=== PATIENT | male | born 1965 | race Caucasian/White ===

== ENCOUNTER 2016-06-21 13:09 | Inpatient (IN) | payer OTHER ==
--- NOTE | 2016-06-21 14:00 | ED ---
General Adult HPI - General Chief complaint: Recheck/Abnormal Lab/Rx Stated complaint: abdominal/feet/hand swelling Time Seen by Provider: 06/21/16 13:41 Source: patient, RN notes reviewed Mode of arrival: ambulatory - History of Present Illness Initial comments: Patient is a 50-year-old male with significant past mental history for CKD, CHF , CAD, diabetes, hypertension, hyperlipidemia, who presents emergency room today with a chief complaint of increased swelling to his lower extremities bilaterally and abdominal swelling. He does admit that he was at a route sales trainee 's office for a stress test this afternoon and was advised come to the emergency room. States he had an inconclusive stress test due to fluid patient does admit that he's had some shortness of breath and increasing symptoms over the last month. he does admit that he does have a paratransit operator that he sees regularly but was unable to get into. Patient states that there is talk about starting dialysis. He denies any other complaints or symptoms. Patient denies any recent fever, chills, chest pain, back pain, nausea or vomiting, numbness or tingling, dysuria or hematuria, constipation or diarrhea, headaches or visual changes, or any other complaints. - Related Data Home Medications Medication Instructions Recorded Confirmed Aspirin 81 mg PO DAILY 01/24/14 06/21/16 Citalopram Hydrobromide [CeleXA] 20 mg PO DAILY 01/24/14 06/21/16 Clopidogrel [Plavix] 75 mg PO DAILY 02/19/15 06/21/16 Carvedilol [Coreg] 25 mg PO Q12H 02/20/15 06/21/16 Omeprazole [PriLOSEC] 20 mg PO AC-BRKFST 02/20/15 06/21/16 Cholecalciferol [Vitamin D3] 2,000 unit PO DAILY 06/21/16 06/21/16 Furosemide [Lasix] 40 mg PO BID 06/21/16 06/21/16 Isosorbide Mononitrate ER [Imdur] 30 mg PO BID 06/21/16 06/21/16 Magnesium Oxide [Mag-Ox] 400 mg PO DAILY 06/21/16 06/21/16 amLODIPine [Norvasc] 10 mg PO DAILY 06/21/16 06/21/16 hydrALAZINE HCL [Apresoline] 50 mg PO BID 06/21/16 06/21/16 Allergies Allergy/AdvReac Type Severity Reaction Status Date / Time No Known Allergies Allergy Verified 06/21/16 13:49 Review of Systems ROS Statement: Those systems with pertinent positive or pertinent negative responses have been documented in the HPI. ROS Other: All systems not noted in ROS Statement are negative. Past Medical History Past Medical History: Heart Failure, Diabetes Mellitus, Hyperlipidemia, Hypertension, Renal Disease Additional Past Medical History / Comment(s): Hx chronic kidney disease,stage 4 , Hx. CHF, MS, Neuropathy History of Any Multi-Drug Resistant Organisms: None Reported Past Surgical History: Heart Catheterization With Stent, Pacemaker Additional Past Surgical History / Comment(s): Hx. vasectomy, pacemaker defibulator 06/08/2014 Past Anesthesia/Blood Transfusion Reactions: No Reported Reaction Date of Last Stent Placement:: jun 2014 Type of Cardiac Device: Permanent Pacemaker, AICD Device Placement Date:: 06/08/2014 Past Psychological History: Depression Smoking Status: Current every day smoker Past Alcohol Use History: None Reported Past Drug Use History: Marijuana Additional Drug Use History / Comment(s): pt states he smokes "half of a pack per day" and uses "medical marijuana" - Past Family History Mother Additional Family Medical History / Comment(s): Mother-stent son-1 kidney General Exam - General Exam Comments Initial Comments: General: The patient is awake and alert, in no distress, and does not appear acutely ill. Eye: Pupils are equal, round and reactive to light, extra-ocular movements are intact. No nystagmus. There is normal conjunctiva bilaterally. No signs of icterus. Ears, nose, mouth and throat: There are moist mucous membranes and no oral lesions. Neck: The neck is supple, there is no tenderness or JVD. Cardiovascular: There is a regular rate and rhythm. No murmur, rub or gallop is appreciated. Respiratory: Lungs are clear to auscultation, respirations are non-labored, breath sounds are equal. No wheezes, stridor, rales, or rhonchi. Gastrointestinal: Mild distention. No tenderness on palpation. Abdominal sounds normal. No rebound tenderness. No guarding. No CVA tenderness. Musculoskeletal: Normal ROM, no tenderness. Strength 5/5. Sensation intact. Pulses equal bilaterally 2+. 2+ pitting edema to the lower shows. Neurological: A&O x 3. CN II-XII intact, There are no obvious motor or sensory deficits. Coordination appears grossly intact. Speech is normal. Skin: Skin is warm and dry and no rashes or lesions are noted. Psychiatric: Cooperative, appropriate mood & affect, normal judgment. Course Vital Signs 06/21/16 06/21/16 06/21/16 13:18 14:00 14:54 Temperature 97.5 F L Pulse Rate 69 66 Pulse Rate [ 73 Bilateral Plater Helper ] Respiratory 18 20 20 Rate Blood Pressure 190/96 189/112 O2 Sat by Pulse 98 99 Oximetry 06/21/16 06/21/16 15:34 16:14 Temperature Pulse Rate 66 70 Pulse Rate [ Bilateral Plater Helper ] Respiratory 20 18 Rate Blood Pressure 185/107 189/108 O2 Sat by Pulse 98 98 Oximetry EKG Findings - EKG Comments: EKG Findings:: Patient's EKG performed at 1405: Shows a paced rhythm at 66 bpm. MA interval 136. QRS 138. QT/QTc 514/538. No acute ST changes. Medical Decision Making - Medical Decision Making Case discussed in detail with attending physician Dr. [email or web address]. Patient's labs were reviewed and shows elevation of BUN/creatinine. GFR 22. Patient will be admitted for anasarca and consult to paratransit operator Dr. Ivna. - Lab Data Result diagrams: 06/21/16 13:50 06/21/16 13:50 Lab Results 06/21/16 06/21/16 06/21/16 Range/Units 13:50 13:50 13:50 WBC 6.6 (3.8-10.6) k/uL RBC 4.23 L (4.30-5.90) m/uL Hgb 11.5 L (13.0-17.5) gm/dL Hct 37.4 L (39.0-53.0) % MCV 88.5 (80.0-100.0) fL MCH 27.1 (25.0-35.0) pg MCHC 30.7 L (31.0-37.0) g/dL RDW 15.2 (11.5-15.5) % Plt Count 298 (150-450) k/uL Neutrophils % 73 % Lymphocytes % 17 % Monocytes % 6 % Eosinophils % 3 % Basophils % 1 % Neutrophils # 4.9 (1.3-7.7) k/uL Lymphocytes # 1.1 (1.0-4.8) k/uL Monocytes # 0.4 (0-1.0) k/uL Eosinophils # 0.2 (0-0.7) k/uL Basophils # 0.0 (0-0.2) k/uL Hypochromasia Slight PT (9.0-12.0) sec INR (<1.1) APTT (22.0-30.0) sec Sodium 145 (137-145) mmol/L Potassium 5.1 (3.5-5.1) mmol/L Chloride 109 H (98-107) mmol/L Carbon Dioxide 22 (22-30) mmol/L Anion Gap 14 mmol/L BUN 45 H (9-20) mg/dL Creatinine 3.00 H (0.66-1.25) mg/dL Est GFR (MDRD) Af Amer 27 (>60 ml/min/1.73 sqM) Est GFR (MDRD) Non-Af 22 (>60 ml/min/1.73 sqM) Glucose 121 H (74-99) mg/dL Calcium 9.1 (8.4-10.2) mg/dL Magnesium 1.7 (1.6-2.3) mg/dL Total Bilirubin 2.4 H (0.2-1.3) mg/dL AST 16 L (17-59) U/L ALT 31 (21-72) U/L Alkaline Phosphatase 111 (38-126) U/L Total Creatine Kinase 229 H (55-170) U/L CK-MB (CK-2) 2.0 (0.0-2.4) ng/mL CK-MB (CK-2) Rel Index 0.9 Troponin I 0.019 (0.000-0.034) ng/mL NT-Pro-B Natriuret Pep pg/mL Total Protein 7.1 (6.3-8.2) g/dL Albumin 4.0 (3.5-5.0) g/dL 06/21/16 06/21/16 Range/Units 13:50 13:50 WBC (3.8-10.6) k/uL RBC (4.30-5.90) m/uL Hgb (13.0-17.5) gm/dL Hct (39.0-53.0) % MCV (80.0-100.0) fL MCH (25.0-35.0) pg MCHC (31.0-37.0) g/dL RDW (11.5-15.5) % Plt Count (150-450) k/uL Neutrophils % % Lymphocytes % % Monocytes % % Eosinophils % % Basophils % % Neutrophils # (1.3-7.7) k/uL Lymphocytes # (1.0-4.8) k/uL Monocytes # (0-1.0) k/uL Eosinophils # (0-0.7) k/uL Basophils # (0-0.2) k/uL Hypochromasia PT 12.6 H (9.0-12.0) sec INR 1.3 (<1.1) APTT 25.0 (22.0-30.0) sec Sodium (137-145) mmol/L Potassium (3.5-5.1) mmol/L Chloride (98-107) mmol/L Carbon Dioxide (22-30) mmol/L Anion Gap mmol/L BUN (9-20) mg/dL Creatinine (0.66-1.25) mg/dL Est GFR (MDRD) Af Amer (>60 ml/min/1.73 sqM) Est GFR (MDRD) Non-Af (>60 ml/min/1.73 sqM) Glucose (74-99) mg/dL Calcium (8.4-10.2) mg/dL Magnesium (1.6-2.3) mg/dL Total Bilirubin (0.2-1.3) mg/dL AST (17-59) U/L ALT (21-72) U/L Alkaline Phosphatase (38-126) U/L Total Creatine Kinase (55-170) U/L CK-MB (CK-2) (0.0-2.4) ng/mL CK-MB (CK-2) Rel Index Troponin I (0.000-0.034) ng/mL NT-Pro-B Natriuret Pep 07617 pg/mL Total Protein (6.3-8.2) g/dL Albumin (3.5-5.0) g/dL Disposition Clinical Impression: Anasarca, CKD (chronic kidney disease) Disposition: ADMITTED IP TO THIS [facility] Condition: Stable Time of Disposition: 17:00
[2016-06-21 14:29] LABS: Basophils % (A) 1 %; CH 27.5; CHCM 31.2; Eosinophils # (A) 0.2 k/uL (0-0.7); Eosinophils % (A) 3 %; HCT 37.4 % (39.0-53.0); HGB 11.5 gm/dL (13.0-17.5); Hypochromasia Slight; Luc # (Auto) 0.06; Luc % (Auto) 1; Lymphocytes # (A) 1.1 k/uL (1.0-4.8); Lymphocytes % (A) 17 %; MCH 27.1 pg (25.0-35.0); MCHC 30.7 g/dL (31.0-37.0); MCV 88.5 fL (80.0-100.0); Mean Platelet Volume 7.4; Monocytes # (A) 0.4 k/uL (0-1.0); Monocytes % (A) 6 %; Neutrophils # (A) 4.9 k/uL (1.3-7.7); Neutrophils % (A) 73 %; RBC 4.23 m/uL (4.30-5.90); RDW 15.2 % (11.5-15.5); WBC 6.6 k/uL (3.8-10.6); WBC (Perox) 6.65
[2016-06-21 14:37] LABS: INR 1.3 (<1.1); Prothrombin Time 12.6 sec (9.0-12.0)
[2016-06-21 14:40] LABS: Calcium 9.1 mg/dL (8.4-10.2); Magnesium 1.7 mg/dL (1.6-2.3); Potassium 5.1 mmol/L (3.5-5.1); Total Bilirubin 2.4 mg/dL (0.2-1.3); Total Protein 7.1 g/dL (6.3-8.2)
--- NOTE | 2016-06-21 14:44 | XR ---
EXAMINATION TYPE: XR chest 2V DATE OF EXAM: 06/21/2016 2:38 PM COMPARISON: Chest x-ray February 21, 2015. HISTORY: Chest pain and shortness of breath TECHNIQUE: Frontal and lateral views of the chest are obtained. FINDINGS: There is no focal air space opacity, pleural effusion, or pneumothorax seen. The cardiac silhouette size is stable and enlarged with multiple lead pacemaker/ICD redemonstrated. The osseous structures are intact. IMPRESSION: Cardiomegaly without acute pulmonary process. No significant change from prior.
[2016-06-21 15:09] LABS: Troponin I 0.019 ng/mL (0.000-0.034)
[2016-06-21] MEDS ORDERED: HYDROcodone/APAP 5-325MG 1 EACH TAB PO PRN (17:00)
[2016-06-21] MEDS ORDERED: NALOXONE 0.4 MG/ML 1 ML VIAL IV PRN ×2 (17:00→17:03)
[2016-06-21] MEDS ORDERED: HYDROmorphone 2 MG TAB PO PRN ×2 (17:00→17:11)
[2016-06-21] MEDS ORDERED: ONDANSETRON 4 MG/2 ML VIAL IVP PRN (17:00)
[2016-06-21] MEDS ORDERED: SODIUM CHLORIDE 0.9% 1,000 ML IV ONE (17:00)
[2016-06-21] MEDS ORDERED: ACETAMINOPHEN TAB 325 MG TAB PO PRN (17:00)
[2016-06-21] MEDS ORDERED: LORazepam 2 MG/ML SYRINGE IV PRN (17:00)
[2016-06-21] MEDS ORDERED: FUROSEMIDE 10 MG/ML 4 ML VIAL IV STA (17:03)
[2016-06-21] MEDS: hydrALAZINE HCL 50 MG TAB PO SCH ×2 (18:20→23:25)
[2016-06-21] MEDS: amLODIPine 10 MG TAB PO SCH (18:20)
[2016-06-21] MEDS: FUROSEMIDE 10 MG/ML 4 ML VIAL IV SCH (22:10)
[2016-06-21] MEDS: ISOSORBIDE MONONITRATE ER 30 MG TAB.ER.24H PO SCH (22:11)
[2016-06-22 07:50] LABS: Basophils # (A) 0.1 k/uL (0-0.2); Basophils % (A) 1 %; CH 27.6; CHCM 31.5; Eosinophils # (A) 0.2 k/uL (0-0.7); Eosinophils % (A) 4 %; HCT 33.1 % (39.0-53.0); HDW 2.71; HGB 10.2 gm/dL (13.0-17.5); Hypochromasia Slight; Luc # (Auto) 0.08; Luc % (Auto) 1; Lymphocytes # (A) 0.9 k/uL (1.0-4.8); Lymphocytes % (A) 18 %; MCHC 30.7 g/dL (31.0-37.0); Mean Platelet Volume 7.6; Monocytes # (A) 0.4 k/uL (0-1.0); Monocytes % (A) 8 %; Neutrophils # (A) 3.6 k/uL (1.3-7.7); Neutrophils % (A) 68 %; RBC 3.76 m/uL (4.30-5.90); RDW 15.3 % (11.5-15.5); WBC 5.3 k/uL (3.8-10.6); WBC (Perox) 5.37
[2016-06-22 08:01] LABS: Calcium 8.8 mg/dL (8.4-10.2); Potassium 4.5 mmol/L (3.5-5.1); Total Bilirubin 2.5 mg/dL (0.2-1.3); Total Protein 5.8 g/dL (6.3-8.2)
[2016-06-22] MEDS: CARVEDILOL 12.5 MG TAB PO SCH ×2 (08:28→16:21)
[2016-06-22] MEDS: CLOPIDOGREL 75 MG TAB PO SCH (08:29)
[2016-06-22] MEDS: hydrALAZINE HCL 50 MG TAB PO SCH ×2 (08:29→23:05)
[2016-06-22] MEDS: CITALOPRAM HYDROBROMIDE 20 MG TAB PO SCH (08:29)
[2016-06-22] MEDS: FUROSEMIDE 10 MG/ML 4 ML VIAL IV SCH ×3 (08:29→23:05)
[2016-06-22] MEDS: MAGNESIUM OXIDE 400 MG TAB PO SCH (08:29)
[2016-06-22] MEDS: ISOSORBIDE MONONITRATE ER 30 MG TAB.ER.24H PO SCH ×2 (08:29→22:22)
[2016-06-22] MEDS: amLODIPine 10 MG TAB PO SCH (09:22)
--- NOTE | 2016-06-22 11:24 | P.NPCON ---
History of Present Illness - Reason for Consult chronic renal failure - History of Present Illness Reason for consultation: Chronic kidney disease stage IV History of present illness: Patient is a 50-year-old male seen in renal consultation for chronic kidney disease. Patient has chronic kidney disease stage IV secondary to diabetic kidney disease. His creatinine in 2014 was in the range of 3.5-4. It is actually little better this admission and is 2.9 this morning. He does follow with us as an outpatient. Patient does have history of cardiomyopathy with depressed ejection fraction for which she has a defibrillator in place. Patient has noticed worsening lower extremity swelling as well as a abdominal swelling that has been getting worse over the last 2 weeks. States he was compliant with his medications including diuretics. Admits to good urine output. He is currently on IV Lasix and is feeling better. Swelling has improved. He does try to avoid salt. However he does admit to drinking excess fluid at times. Denies use of NSAIDs. Vital signs are stable. General: The patient appeared well nourished and normally developed. HEENT: Head exam is unremarkable. Neck is without jugular venous distension. LUNGS: Lungs are clear to auscultation and percussion. Breath sounds decreased. HEART: Rate and Rhythm are regular. First and second heart sounds normal. No murmurs, rubs or gallops. ABDOMEN: Abdominal exam reveals normal bowel sounds. Non-tender and non- distended. No evidence of peritonitis. EXTREMITITES: 1+ pitting edema. Past Medical History Past Medical History: Heart Failure, Diabetes Mellitus, Hyperlipidemia, Hypertension, Renal Disease Additional Past Medical History / Comment(s): Hx chronic kidney disease,stage 4 , Hx. CHF, MS, Neuropathy History of Any Multi-Drug Resistant Organisms: None Reported Past Surgical History: Heart Catheterization With Stent, Pacemaker Additional Past Surgical History / Comment(s): Hx. vasectomy, pacemaker defibulator 06/08/2014 Past Anesthesia/Blood Transfusion Reactions: No Reported Reaction Date of Last Stent Placement:: jun 2014 Type of Cardiac Device: Permanent Pacemaker, AICD Device Placement Date:: 06/08/2014 Past Psychological History: Depression Smoking Status: Current every day smoker Past Alcohol Use History: None Reported Past Drug Use History: Marijuana Additional Drug Use History / Comment(s): pt states he smokes "half of a pack per day" and uses "medical marijuana" - Past Family History Mother Additional Family Medical History / Comment(s): Mother-stent son-1 kidney Medications and Allergies Home Medications Medication Instructions Recorded Confirmed Type Aspirin 81 mg PO DAILY 01/24/14 06/21/16 History Clopidogrel [Plavix] 75 mg PO DAILY 02/19/15 06/21/16 History Carvedilol [Coreg] 25 mg PO Q12H 02/20/15 06/21/16 History Omeprazole [PriLOSEC] 20 mg PO AC-BRKFST 02/20/15 06/21/16 History Cholecalciferol [Vitamin D3] 2,000 unit PO DAILY 06/21/16 06/21/16 History Furosemide [Lasix] 40 mg PO BID 06/21/16 06/21/16 History Isosorbide Mononitrate ER [Imdur] 30 mg PO BID 06/21/16 06/21/16 History Magnesium Oxide [Mag-Ox] 400 mg PO DAILY 06/21/16 06/21/16 History amLODIPine [Norvasc] 10 mg PO DAILY 06/21/16 06/21/16 History hydrALAZINE HCL [Apresoline] 50 mg PO BID 06/21/16 06/21/16 History Allergies Allergy/AdvReac Type Severity Reaction Status Date / Time No Known Allergies Allergy Verified 06/21/16 13:49 Physical Exam Vitals: Vital Signs Temp Pulse Pulse Resp BP BP Pulse Ox 06/22/16 07:00 97.1 F L 66 16 142/75 96 06/22/16 02:10 153/72 06/21/16 23:00 97.2 F L 71 16 133/61 98 06/21/16 22:15 73 18 163/83 06/21/16 20:16 97.1 F L 81 16 183/101 98 06/21/16 20:00 16 06/21/16 19:41 98.1 F 69 16 165/88 97 Intake and Output 06/21/16 06/22/16 06/22/16 22:59 06:59 14:59 Output Total 650 Balance -650 Output: Urine 650 Other: # Voids 0 Weight 84.5 kg Results - Lab Results Most recent lab results Calcium 8.8 mg/dL (8.4-10.2) 06/22/16 07:17 Magnesium 1.7 mg/dL (1.6-2.3) 06/21/16 13:50 06/22/16 07:17 06/22/16 07:17 Assessment and Plan Plan: Assessment: #1. Chronic kidney disease stage IV secondary to diabetic kidney disease. GFR is at baseline. #2. Volume overload area improving. #3. Anemia. Rule out iron deficiency. #4. History of CHF with systolic dysfunction status post defibrillator placement. #5. Diabetes mellitus. Plan: I will increase Lasix to 40 mg IV every 8 hours for the next 24 hours. Check iron studies. Low-salt diet. Avoid nephrotoxic agents and hypotensive episodes. Repeat electrolytes in the morning. Thank you for the consultation. I will continue to follow the patient with you during his hospital stay.
[2016-06-22 12:15] LABS: % Iron Saturation 14.6 % (20-50)
--- NOTE | 2016-06-22 14:53 | P.CRDCN ---
History of Present Illness Consult date: 06/22/16 History of present illness: This is a pleasant 50-year-old gentleman who sees a caretaker resort out of the town with a past medical history significant for coronary artery disease and prior stenting with unknown details at this point, ischemic cardiomyopathy, status post ICD, stage IV chronic kidney disease, as well as multiple comorbid conditions who was admitted to the hospital with what it seems to be anasarca. The patient has been experiencing progressive bilateral lower extremities edema and progressive abdominal distention as well. He denies having any chest pain or chest discomfort. Denies having any shortness of breath. No dizziness or lightheadedness and no syncope. The EKG showed atrial sensed ventricular paced rhythm. The BNP came in to be very elevated as well. The patient has significant bilateral lower extremities edema on physical examination. The patient was started on Lasix by the nephrology service. There is possibility that the patient might need to start on hemodialysis. Past Medical History Past Medical History: Heart Failure, Diabetes Mellitus, Hyperlipidemia, Hypertension, Renal Disease Additional Past Medical History / Comment(s): Hx chronic kidney disease,stage 4 , Hx. CHF, MS, Neuropathy History of Any Multi-Drug Resistant Organisms: None Reported Past Surgical History: Heart Catheterization With Stent, Pacemaker Additional Past Surgical History / Comment(s): Hx. vasectomy, pacemaker defibulator 06/08/2014 Past Anesthesia/Blood Transfusion Reactions: No Reported Reaction Date of Last Stent Placement:: jun 2014 Type of Cardiac Device: Permanent Pacemaker, AICD Device Placement Date:: 06/08/2014 Past Psychological History: Depression Smoking Status: Current every day smoker Past Alcohol Use History: None Reported Past Drug Use History: Marijuana Additional Drug Use History / Comment(s): pt states he smokes "half of a pack per day" and uses "medical marijuana" - Past Family History Mother Additional Family Medical History / Comment(s): Mother-stent son-1 kidney Medications and Allergies Home Medications Medication Instructions Recorded Confirmed Type Aspirin 81 mg PO DAILY 01/24/14 06/21/16 History Clopidogrel [Plavix] 75 mg PO DAILY 02/19/15 06/21/16 History Carvedilol [Coreg] 25 mg PO Q12H 02/20/15 06/21/16 History Omeprazole [PriLOSEC] 20 mg PO AC-BRKFST 02/20/15 06/21/16 History Cholecalciferol [Vitamin D3] 2,000 unit PO DAILY 06/21/16 06/21/16 History Furosemide [Lasix] 40 mg PO BID 06/21/16 06/21/16 History Isosorbide Mononitrate ER [Imdur] 30 mg PO BID 06/21/16 06/21/16 History Magnesium Oxide [Mag-Ox] 400 mg PO DAILY 06/21/16 06/21/16 History amLODIPine [Norvasc] 10 mg PO DAILY 06/21/16 06/21/16 History hydrALAZINE HCL [Apresoline] 50 mg PO BID 06/21/16 06/21/16 History Allergies Allergy/AdvReac Type Severity Reaction Status Date / Time No Known Allergies Allergy Verified 06/21/16 13:49 Physical Exam Vitals: Vital Signs Temp Pulse Pulse Resp BP BP Pulse Ox 06/22/16 07:00 97.1 F L 66 16 142/75 96 06/22/16 02:10 153/72 06/21/16 23:00 97.2 F L 71 16 133/61 98 06/21/16 22:15 73 18 163/83 06/21/16 20:16 97.1 F L 81 16 183/101 98 06/21/16 20:00 16 06/21/16 19:41 98.1 F 69 16 165/88 97 Intake and Output 06/21/16 06/22/16 06/22/16 22:59 06:59 14:59 Output Total 650 Balance -650 Output: Urine 650 Other: # Voids 0 3 Weight 84.5 kg - Constitutional General appearance: no acute distress - Respiratory Respiratory: bilateral: diminished - Cardiovascular Rhythm: regular Heart sounds: normal: S1, S2 Results 06/22/16 07:17 06/22/16 07:17 Cardiac Enzymes 06/22/16 Range/Units 07: AST 14 L (17-59) U/L CBC 06/22/16 Range/Units 07:17 WBC 5.3 (3.8-10.6) k/uL RBC 3.76 L (4.30-5.90) m/uL Hgb 10.2 L (13.0-17.5) gm/dL Hct 33.1 L (39.0-53.0) % Plt Count 267 (150-450) k/uL Comprehensive Metabolic Panel 06/22/16 Range/Units 07:17 Sodium 141 (137-145) mmol/L Potassium 4.5 (3.5-5.1) mmol/L Chloride 109 H (98-107) mmol/L Carbon Dioxide 21 L (22-30) mmol/L BUN 45 H (9-20) mg/dL Creatinine 2.90 H (0.66-1.25) mg/dL Glucose 97 (74-99) mg/dL Calcium 8.8 (8.4-10.2) mg/dL AST 14 L (17-59) U/L ALT 28 (21-72) U/L Alkaline Phosphatase 97 (38-126) U/L Total Protein 5.8 L (6.3-8.2) g/dL Albumin 3.2 L (3.5-5.0) g/dL Current Medications Generic Name Dose Route Start Last Admin Trade Name Freq PRN Reason Stop Dose Admin Acetaminophen 650 mg 06/21/16 17:00 Tylenol Tab PO Q6HR PRN Mild Pain or Fever > 100.5 Acetaminophen/Hydrocodone Bitart 1 each 06/21/16 17:00 06/21/16 17:35 D Hanis 5-325 PO 1 each Q4HR PRN Administration Moderate Pain Amlodipine Besylate 10 mg 06/21/16 18:00 06/21/16 18:20 Norvasc PO 10 mg DAILY [facility] Administration Aspirin 325 mg 06/23/16 09:00 Aspirin PO DAILY [facility] Carvedilol 25 mg 06/22/16 07:30 06/22/16 08:28 Coreg PO 25 mg BID-W/MEALS [facility] Administration Citalopram Hydrobromide 20 mg 06/22/16 09:00 06/22/16 08:29 Celexa PO 20 mg DAILY [facility] Administration Clopidogrel Bisulfate 75 mg 06/22/16 09:00 06/22/16 08:29 Plavix PO 75 mg DAILY [facility] Administration Furosemide 40 mg 06/22/16 16:00 Lasix IV Q8HR [facility] Hydralazine HCl 50 mg 06/21/16 18:00 06/22/16 08:29 Apresoline PO 50 mg BID [facility] Administration Hydromorphone HCl 1 mg 06/21/16 17:11 Dilaudid PO Q3HR PRN Severe Pain Sodium Chloride 1,000 mls @ 20 mls/hr 06/21/16 17:00 06/21/16 17:46 Saline 0.9% IV 06/22/16 16:59 20 mls/hr .Q24H ONE Administration Isosorbide Mononitrate 30 mg 06/21/16 21:00 06/22/16 08:29 Imdur PO 30 mg BID [facility] Administration Lorazepam 0.5 mg 06/21/16 17:00 Ativan IV Q6HR PRN Anxiety Magnesium Oxide 400 mg 06/22/16 09:00 06/22/16 08:29 Mag-Ox PO 400 mg DAILY [facility] Administration Naloxone HCl 0.2 mg 06/21/16 17:00 Narcan IV Q2M PRN Opioid Reversal Ondansetron HCl 4 mg 06/21/16 17:00 Zofran IVP Q8HR PRN Nausea And Vomiting Intake and Output 06/21/16 06/22/16 06/22/16 22:59 06:59 14:59 Output Total 650 Balance -650 Output: Urine 650 Other: # Voids 0 3 Weight 84.5 kg 06/22/16 07:17 06/22/16 07:17 Assessment and Plan Plan: Assessment #1 fluid overloaded #2 end stage renal disease #3 severe cardiomyopathy #4 severity underlying CAD #5 multiple comorbid conditions #6 significant history of smoking Plan #1 the patient already was started on Lasix IV by the nephrology service #2 add aspirin to the Plavix #3 obtain an echocardiogram with Doppler #4 follow-up with the [id number]
--- NOTE | 2016-06-22 18:05 | HP ---
DATE OF ADMISSION: 06/21/2016 The patient is a 50 year-old gentleman with history of chronic kidney disease, Stage IV CKD secondary to diabetic nephropathy with baseline creatinine is about 2. Came in with complaints of ( ) came in after he was sent in by his dry cleaning attendant because of volume overload and ascites. The patient was found to have elevated BUN and creatinine above his baseline to 3.5 to 4 and the patient has extensive ( ) and ( ) diabetic nephropathy and possibility of ( ) incision closed and end stage renal disease. The patient still makes urine but the patient has ( ) ascites, pedal edema. Patient was also complaining of chest pressure like sensation, ( ) patient has equivocal chest ( ) because of which of around 20% and there was another concern regarding that as ( ). Patient does have ischemic cardiomyopathy, ejection fraction of around 20% and patient has an AICD in place and patient was started on diuretic therapy 40 mg [id number]. Patient already has improvement in bilateral lower limb edema. The patient is having good urine output because of that. REVIEW OF SYSTEMS: CONSTITUTIONAL: As mentioned earlier in the history of present illness. Generalized anasarca and ascites. HEENT: No recent visual problems or hearing problems. Denied any sore throat. CARDIOVASCULAR: As mentioned in the history of present illness. PULMONARY: No shortness of breath, no cough, no hemoptysis. GASTROINTESTINAL: No diarrhea, no nausea, no vomiting, no abdominal pain. Normoactive bowel sounds. NEUROLOGICAL: No headaches, no weakness, no numbness. HEMATOLOGICAL: Denies any bleeding or petechiae. GENITOURINARY: Denies any burning micturition, frequency, or urgency. MUSCULOSKELETAL/RHEUMATOLOGICAL: Denies any joint pain, swelling, or any muscle pain. ENDOCRINE: Denies any polyuria or polydipsia. The rest of the 14 point review of systems is negative. Home medications include: 1. Aspirin. 2. Plavix. 3. Coreg. 4. Omeprazole. 5. Cholecalciferol. 6. Lasix. 7. Isosorbide mononitrate. 8. Magnesium. 9. Hydralazine. 10. Amlodipine. ALLERGIES: No known drug allergies. PAST MEDICAL HISTORY: Significant for congestive heart failure, chronic systolic dysfunction, ejection fraction of around 20% as per the patient. Patient follows up with cardiology out of town, diabetes mellitus Type 2, hyperlipidemia, hypertension, CKD stage IV, diabetic nephropathy, cardiac catheterization and stent placement in the past. The patient has an AICD in place. SOCIAL HISTORY: Patient continues to smoke a half pack per day. Denied any alcohol abuse. Occasional use of marijuana. FAMILY HISTORY: Mother had coronary artery disease and had one kidney. PHYSICAL EXAMINATION: VITAL SIGNS: Temperature 97.9, pulse 62, respiratory rate of 16, blood pressure 142/75, sating at 95% on room air. GENERAL: The patient is alert and oriented x3, not in any acute distress. Well developed, well nourished. HEENT: Pupils are round and equally reacting to light. EOMI. No scleral icterus. No conjunctival pallor. Normocephalic, atraumatic. No pharyngeal erythema. No thyromegaly. CARDIOVASCULAR: S1 and S2 present. No murmurs, rubs, or gallops. PULMONARY: Chest is clear to auscultation, no wheezing or crackles. ABDOMEN: Patient does have significant ascites with shifting dullness. ( ) appears to have improved. Patient has only 1+ ( ) in bilateral lower extremities. Patient does not have an abdominal tenderness. Patient does have good bowel sounds. MUSCULOSKELETAL: No joint swelling or deformity. EXTREMITIES: No cyanosis, clubbing, or pedal edema. NEUROLOGICAL: Gross neurological examination did not reveal any focal deficits. SKIN: No rashes. LABORATORY DATA: CBC, CMP are abnormal for mildly low hemoglobin of 10.2, chronic anemia probably anemia of chronic kidney disease and chloride of 109. Sodium of 141, creatinine 2.90 presently, BUN of 45 with improved creatinine of 8, creatinine improved from around 3 to 4. ASSESSMENT AND PLAN: 1. Generalized anasarca secondary due to nephrotic syndrome and chronic kidney disease from diabetic nephropathy. 2. IV Lasix as mentioned earlier. 3. Congestive heart failure, chronic systolic dysfunction. Patient does not appear to be in exacerbation. Patient does not have any fluid overload in the lungs. 4. Patient did not have any orthopnea, PND or shortness of breath. 5. Chest pressure-like sensation with history of coronary artery disease with ischemic cardiomyopathy history. I will go ahead and consult cardiology because of the ( ) stress test recently and his dry cleaning attendant concerns about doing alternative stress test, probably dobutamine ( ). 6. Type 2 diabetes mellitus. 7. Coronary artery disease. 8. Gastroesophageal reflux disease. 9. Hypertension. For the above mentioned chronic medical problems, we can go ahead and continue his home medications and patient has an AICD in place.
[2016-06-23] MEDS: ISOSORBIDE MONONITRATE ER 30 MG TAB.ER.24H PO SCH ×2 (08:24→21:16)
[2016-06-23] MEDS: CLOPIDOGREL 75 MG TAB PO SCH (08:24)
[2016-06-23] MEDS: ASPIRIN 325 MG TAB PO SCH (08:25)
[2016-06-23] MEDS: MAGNESIUM OXIDE 400 MG TAB PO SCH (08:25)
[2016-06-23] MEDS: FUROSEMIDE 10 MG/ML 4 ML VIAL IV SCH (08:25)
[2016-06-23] MEDS: CARVEDILOL 12.5 MG TAB PO SCH ×2 (08:25→17:25)
[2016-06-23] MEDS: CITALOPRAM HYDROBROMIDE 20 MG TAB PO SCH (08:25)
[2016-06-23] MEDS: hydrALAZINE HCL 50 MG TAB PO SCH ×2 (08:25→21:16)
[2016-06-23] MEDS: amLODIPine 10 MG TAB PO SCH (08:25)
[2016-06-23 09:45] LABS: Calcium 8.6 mg/dL (8.4-10.2)
--- NOTE | 2016-06-23 11:11 | P.PN ---
Subjective Principal diagnosis: Patient is seen in follow-up for chronic kidney disease. He has chronic kidney disease stage IV secondary to diabetic kidney disease with baseline creatinine near 3.5. This admission here function has actually been better with creatinine 2.9 on admission. It is up at 3.2 today. He's currently on Lasix 40 mg IV every 8 hours. Swelling is not improved much. Denies chest pain. He does have history of severe cardiomyopathy and had a defibrillator placed in the past. Vital signs are stable. General: The patient appeared well nourished and normally developed. HEENT: Head exam is unremarkable. Neck is without jugular venous distension. LUNGS: Lungs are clear to auscultation and percussion. Breath sounds decreased. HEART: Rate and Rhythm are regular. First and second heart sounds normal. No murmurs, rubs or gallops. ABDOMEN: Abdominal exam reveals normal bowel sounds. Moderately distended. No evidence of peritonitis. EXTREMITITES: 2+ pitting edema. Objective - Vital Signs Vital signs: Vital Signs Temp 96.7 F L 06/23/16 07:00 Pulse 58 L 06/23/16 07:00 Resp 20 06/23/16 07:00 BP 158/85 06/23/16 07:00 Pulse Ox 96 06/23/16 09:15 Intake & Output 06/22/16 06/23/16 06/23/16 18:59 06:59 18:59 Other: # Voids 3 3 - Labs CBC & Chem 7: 06/22/16 07:17 06/23/16 08:24 Labs: Abnormal Lab Results - Last 24 Hours (Table) 06/22/16 06/22/16 06/23/16 Range/Units :17 14:00 08:24 BUN 50 H (9-20) mg/dL Creatinine 3.20 H (0.66-1.25) mg/dL Glucose 121 H (74-99) mg/dL Phosphorus 4.7 H (2.5-4.5) mg/dL Iron 45 L (49-181) ug/dL % Saturation 14.6 L (20-50) % Assessment and Plan Plan: Assessment: #1. Chronic kidney disease stage IV secondary to diabetic kidney disease. GFR is at baseline. #2. Volume overload. #3. Anemia. Iron deficiency present. #4. History of CHF with systolic dysfunction status post defibrillator placement. #5. Diabetes mellitus. Plan: I will put him on a Lasix drip to be run at 10 mL an hour. Ferrlecit 125 mg IV daily for 3 days. Low-salt diet. Avoid nephrotoxic agents and hypotensive episodes. Repeat electrolytes in the morning. Follow-up 2-D echocardiogram results.
[2016-06-23] MEDS: FUROSEMIDE 250 MG in SODIUM CHLORIDE 0.9% 225 ML IVP SCH (15:40)
[2016-06-23 17:09] LABS: Glucose,Whole Blood 148 mg/dL (75-99)
--- NOTE | 2016-06-23 18:40 | P.PN ---
Subjective This is a pleasant 50-year-old gentleman who sees a continuing education specialist out of the town with a past medical history significant for coronary artery disease and prior stenting with unknown details at this point, ischemic cardiomyopathy, status post ICD, stage IV chronic kidney disease, as well as multiple comorbid conditions who was admitted to the hospital with what it seems to be anasarca. The patient has been experiencing progressive bilateral lower extremities edema and progressive abdominal distention as well. He denies having any chest pain or chest discomfort. Denies having any shortness of breath. No dizziness or lightheadedness and no syncope. The EKG showed atrial sensed ventricular paced rhythm. The BNP came in to be very elevated as well. The patient has significant bilateral lower extremities edema on physical examination. The patient was started on Lasix by the nephrology service. There is possibility that the patient might need to start on hemodialysis. He was seen and evaluated by the nephrology service where the patient was started on Lasix drip. Objective - Vital Signs Vital signs: Vital Signs Temp 95.4 F L 06/23/16 15:20 Pulse 57 L 06/23/16 17:23 Resp 16 06/23/16 15:20 BP 148/81 06/23/16 15:20 Pulse Ox 99 06/23/16 15:20 Intake & Output 06/22/16 06/23/16 06/23/16 18:59 06:59 18:59 Intake Total 100 Balance 100 Weight 79.7 kg Intake: Intake, IV Titration 100 Amount Sodium Chloride 0.9% 1, 100 000 ml @ 20 mls/hr IV . Q24H ONE Rx#:[id number] Other: # Voids 3 3 - Constitutional General appearance: Present: no acute distress - Respiratory Respiratory: bilateral: diminished - Cardiovascular Heart sounds: normal: S1, S2 Abnormal Heart Sounds: Present: systolic murmur - Labs CBC & Chem 7: 06/22/16 07:17 06/23/16 08:24 Labs: Abnormal Lab Results - Last 24 Hours (Table) 06/23/16 06/23/16 Range/Units 08:24 17:06 BUN 50 H (9-20) mg/dL Creatinine 3.20 H (0.66-1.25) mg/dL Glucose 121 H (74-99) mg/dL POC Glucose (mg/dL) 148 H (75-99) mg/dL Assessment and Plan Plan: Assessment #1 fluid overloaded #2 end stage renal disease #3 severe cardiomyopathy #4 severity underlying CAD #5 multiple comorbid conditions #6 significant history of smoking Plan #1 the patient currently on Lasix drip #2 obtain an echocardiogram with Doppler #4 follow-up with the [id number]
[2016-06-24] MEDS: SODIUM FERRIC GLUCONAT-SUCROSE 125 MG in SODIUM CHLORIDE 0.9% 100 ML IVPB SCH ×2 (00:20→11:05)
[2016-06-24 06:12] LABS: Calcium 8.3 mg/dL (8.4-10.2); Potassium 4.8 mmol/L (3.5-5.1)
[2016-06-24] MEDS: CARVEDILOL 12.5 MG TAB PO SCH ×2 (06:31→17:19)
[2016-06-24] MEDS: hydrALAZINE HCL 50 MG TAB PO SCH ×2 (09:14→20:24)
[2016-06-24] MEDS: amLODIPine 10 MG TAB PO SCH (09:15)
[2016-06-24] MEDS: ASPIRIN 325 MG TAB PO SCH (09:15)
[2016-06-24] MEDS: CLOPIDOGREL 75 MG TAB PO SCH (09:15)
[2016-06-24] MEDS: CITALOPRAM HYDROBROMIDE 20 MG TAB PO SCH (09:15)
[2016-06-24] MEDS: ISOSORBIDE MONONITRATE ER 30 MG TAB.ER.24H PO SCH ×2 (09:15→20:24)
[2016-06-24] MEDS: MAGNESIUM OXIDE 400 MG TAB PO SCH (09:15)
[2016-06-24] MEDS: FUROSEMIDE 250 MG in SODIUM CHLORIDE 0.9% 225 ML IVP SCH (11:05)
--- NOTE | 2016-06-24 11:12 | ECHOF ---
Referral Reason:chf MEASUREMENTS -------- HEIGHT: 170.2 cm WEIGHT: 79.8 kg BP: 115/69 RVIDd: 4.1 cm (< 3.3) IVSd: 1.1 cm (0.6 - 1.1) LVIDd: 5.5 cm (3.9 - 5.3) LVPWd: 1.1 cm (0.6 - 1.1) IVSs: 1.3 cm LVIDs: 4.6 cm LVPWs: 1.4 cm LA Diam: 3.2 cm (2.7 - 3.8) LAESV Index (A-L): 49.24 ml/m Ao Diam: 2.7 cm (2.0 - 3.7) AV Cusp: 1.5 cm (1.5 - 2.6) LA Diam: 3.3 cm (2.7 - 3.8) MV EXCURSION: 9.957 mm (> 18.000) MV EF SLOPE: 56 mm/s (70 - 150) EPSS: 1.1 cm MV E Lee: 0.91 m/s MV DecT: 303 ms MV A Lee: 0.28 m/s MV E/A Ratio: 3.31 RAP: 15.00 mmHg RVSP: 60.37 mmHg FINDINGS -------- Resting bradycardia (HR<60bpm). Pacerwire seen in RV and RA. This was a technically good study. The left ventricle is mildly dilated. There is borderline concentric left ventricular hypertrophy. Overall left ventricular systolic function is severely impaired with, an EF < 20%. The right ventricle is severely enlarged. Paradoxical motion of the right ventricular septum is consistent with right ventricular overload and/or elevated right ventricular end-diastolic pressure. LA is severely dilated >40 ml/m2 The right atrium is mildly enlarged. Aortic valve is trileaflet and is mildly thickened. The mitral valve leaflets are mildly thickened. Mild mitral annular calcification present. Mild mitral regurgitation is present. Moderate tricuspid regurgitation present. There is severe pulmonary hypertension. The right ventricular systolic pressure, as measured by Doppler, is 60.37mmHg. Pulmonic valve appears structurally normal. The aortic root size is normal. The inferior vena cava is dilated with no significant inspiratory collapse which is consistent estimated right atrial pressure of >15 mmHg. Echo free space may represent effusion or a pericardial fat pad. CONCLUSIONS -------- 1. Resting bradycardia (HR<60bpm). 2. The mitral valve leaflets are mildly thickened. 3. Mild mitral annular calcification present. 4. Mild mitral regurgitation is present. 5. Moderate tricuspid regurgitation present. 6. There is severe pulmonary hypertension. 7. The right ventricular systolic pressure, as measured by Doppler, is 60.37mmHg. 8. Pulmonic valve appears structurally normal. 9. The aortic root size is normal. 10. The inferior vena cava is dilated with no significant inspiratory collapse which is consistent estimated right atrial pressure of >15 mmHg. 11. Echo free space may represent effusion or a pericardial fat pad. 12. Pacerwire seen in RV and RA. 13. This was a technically good study. 14. There is borderline concentric left ventricular hypertrophy. 15. Overall left ventricular systolic function is severely impaired with, an EF < 20%. 16. The right ventricle is severely enlarged. 17. LA is severely dilated >40 ml/m2 18. The right atrium is mildly enlarged. 19. Aortic valve is trileaflet and is mildly thickened. SUBSTATION OPERATOR TRANSFORMING: Charis Carranza RDCS
--- NOTE | 2016-06-24 12:03 | PN ---
A 50-year-old admitted with anasarca. Patient had CKD ( ). Patient's kidney function worsened a little bit because of which, I believe because of that reason, patient was switched from IV Lasix to Lasix drip. REVIEW OF SYSTEMS: CARDIOVASCULAR: No chest pain, no orthopnea, no PND, no palpitations. PULMONARY: Denied any shortness of breath. No cough or hemoptysis. GASTROINTESTINAL: No diarrhea, nausea or vomiting. No abdominal pain. Normoactive bowel sounds. NEUROLOGIC: No headaches, no weakness, no numbness. Medications are reviewed. Medications changes as mentioned in the interval history. PHYSICAL EXAMINATION: VITAL SIGNS: Temperature 97.4, pulse of 57, respiratory rate of 16, blood pressure is 148/81, saturating at 99% on room air. GENERAL EXAMINATION: Patient does have generalized anasarca with ascites. HEENT: Pupils are round and equally reacting to light. EOMI. No scleral icterus. No conjunctival pallor. Normocephalic, atraumatic. No pharyngeal erythema. No thyromegaly. CARDIOVASCULAR: S1 and S2 present. No murmurs, rubs, or gallops. PULMONARY: Chest is clear to auscultation, no wheezing or crackles. ABDOMEN: Soft, nontender, nondistended, normoactive bowel sounds. No palpable organomegaly. MUSCULOSKELETAL: No joint swelling or deformity. EXTREMITIES: No cyanosis, clubbing, or pedal edema. NEUROLOGICAL: Gross neurological examination did not reveal any focal deficits. SKIN: No rashes. LABORATORY DATA: Mildly worsened creatinine of 3.2, BUN of 50. Patient's creatinine yesterday was 2.90. ASSESSMENT AND PLAN: 1. Generalized anasarca secondary to nephrotic syndrome and chronic kidney disease from diabetic nephropathy. 2. Patient does have congestive heart failure, chronic systolic dysfunction, although patient does not appear to have any pulmonary edema at this point of time. Patient does have peripheral edema and anasarca. Patient is not in congestive heart failure exacerbation at this time. Chest pressure-like sensation, cardiology chest pain. Please refer to guard immigration documentation for further details. 3. Type 2 diabetes mellitus. 4. Coronary artery disease. 5. Gastroesophageal reflux disease. 6. Hypertension. PLAN: IV Lasix drip, I's and O's, kidney function monitoring.
--- NOTE | 2016-06-24 16:09 | P.PN ---
Subjective Principal diagnosis: CHF This is a pleasant 50-year-old gentleman who sees a international nurse out of the town with a past medical history significant for coronary artery disease and prior stenting with unknown details at this point, ischemic cardiomyopathy, status post ICD, stage IV chronic kidney disease, as well as multiple comorbid conditions who was admitted to the hospital with what it seems to be anasarca. He is currently on an IV Lasix drip. No change in weight from yesterday to today. He is diuresing. Creatinine today 3.5, 3.2 yesterday. Echocardiogram with Doppler study was performed which revealed an ejection fraction of less than 20%. Cardiology's perspective, we will continue the IV Lasix drip as per nephrology, continue aspirin, Coreg, we'll discontinue the Norvasc, because of ejection fraction of less than 20%. Continue hydralazine and nitrates. Objective - Vital Signs Vital signs: Vital Signs Temp 96.6 F L 06/24/16 11:53 Pulse 73 06/24/16 11:53 Resp 18 06/24/16 11:53 BP 131/73 06/24/16 11:53 Pulse Ox 95 06/24/16 11:53 Intake & Output 06/23/16 06/24/16 06/24/16 18:59 06:59 18:59 Intake Total 100 1780 714.167 Output Total 1700 550 Balance 100 80 164.167 Weight 79.7 kg 80.1 kg Intake: IV 280 220 0.9 60 30 Furosemide 250 mg In 120 90 Sodium Chloride 0.9% 225 ml @ 10 MG/HR 10 mls/hr IVP .Q24H [facility] Rx#: [id number] Sodium Ferric Gluconat- 100 100 Sucrose 125 mg In Sodium Chloride 0.9% 100 ml @ 100 mls/hr IVPB DAILY [facility] Rx#:[id number] Intake, IV Titration 100 194.167 Amount Furosemide 250 mg In 194.167 Sodium Chloride 0.9% 225 ml @ 10 MG/HR 10 mls/hr IVP .Q24H [facility] Rx#: [id number] Sodium Chloride 0.9% 1, 100 000 ml @ 20 mls/hr IV . Q24H ONE Rx#:[id number] Oral 1500 300 Output: Urine 1700 550 Other: Voiding Method Urinal Urinal # Voids 2 1 - Exam General: The patient appeared well nourished and normally developed. HEENT: Head exam is unremarkable. Neck is without jugular venous distension. LUNGS: Lungs are clear to auscultation and percussion. Breath sounds decreased. HEART: Rate and Rhythm are regular. First and second heart sounds normal. No murmurs, rubs or gallops. ABDOMEN: Abdominal exam reveals normal bowel sounds. Moderately distended. No evidence of peritonitis. EXTREMITITES: 2+ pitting edema. - Labs CBC & Chem 7: 06/22/16 07:17 06/24/16 05:30 Labs: Abnormal Lab Results - Last 24 Hours (Table) 06/23/16 06/24/16 Range/Units 17:06 05:30 Chloride 108 H (98-107) mmol/L BUN 57 H (9-20) mg/dL Creatinine 3.51 H (0.66-1.25) mg/dL Glucose 116 H (74-99) mg/dL POC Glucose (mg/dL) 148 H (75-99) mg/dL Calcium 8.3 L (8.4-10.2) mg/dL Assessment and Plan (1) Systolic CHF, acute on chronic Status: Acute (2) Diabetes Status: Acute (3) HTN (hypertension) Status: Acute (4) Anasarca Status: Acute (5) CKD (chronic kidney disease) Status: Acute Plan: Cardiology's perspective, we will recommend to continue IV light Lasix drip as per nephrology, continue Coreg, hydralazine, nitrates, we will discontinue the Norvasc as the patient's LV function is less than 20%. Continue to monitor intake and output along with daily weights. DNP note has been reviewed, I agree with a documented findings and plan of care. Patient was seen and examined.
--- NOTE | 2016-06-24 17:23 | P.PN ---
Subjective This is a 50-year-old male known with chronic kidney disease stage IV who was admitted with worsening edema. He's been treated with IV Lasix 10 mg per hour. His face is feeling better less swollen. Denies any dizziness cough fever chills has a good appetite. His baseline creatinine has ranged between 2.45 in 2013-4.1 in 2014 and more recently on 02/22/2016 was 3.49. Known with diabetes mellitus and hyperlipidemia hypertension and congestive heart failure. He had heart catheterization with stent and pacemaker. Objective - Vital Signs Vital signs: Vital Signs Temp 97.5 F L 06/24/16 16:00 Pulse 73 06/24/16 16:00 Resp 16 06/24/16 16:00 BP 132/73 06/24/16 16:00 Pulse Ox 96 06/24/16 16:00 Intake & Output 06/23/16 06/24/16 06/24/16 18:59 06:59 18:59 Intake Total 100 1780 714.167 Output Total 1700 550 Balance 100 80 164.167 Weight 79.7 kg 80.1 kg Intake: IV 280 220 0.9 60 30 Furosemide 250 mg In 120 90 Sodium Chloride 0.9% 225 ml @ 10 MG/HR 10 mls/hr IVP .Q24H [facility] Rx#: [id number] Sodium Ferric Gluconat- 100 100 Sucrose 125 mg In Sodium Chloride 0.9% 100 ml @ 100 mls/hr IVPB DAILY [facility] Rx#:[id number] Intake, IV Titration 100 194.167 Amount Furosemide 250 mg In 194.167 Sodium Chloride 0.9% 225 ml @ 10 MG/HR 10 mls/hr IVP .Q24H [facility] Rx#: [id number] Sodium Chloride 0.9% 1, 100 000 ml @ 20 mls/hr IV . Q24H ONE Rx#:[id number] Oral 1500 300 Output: Urine 1700 550 Other: Voiding Method Urinal Urinal # Voids 2 1 On examination is awake alert oriented comfortable HEENT exam JVP is elevated about 10 cm about sternal angle. Neck is supple no facial asymmetry Lungs are clear to auscultation percussion good air entry bilaterally Heart sounds are unremarkable for any murmur rub gallop Abdomen soft nontender possibly mild ascites is present He complains of abdominal distention. Extremity exam reveals minimal edema with a small 1 cm superficial wound on the right lower shins which should been present for several months and is not healing. Neurologically awake alert oriented - Labs CBC & Chem 7: 06/22/16 07:17 06/24/16 05:30 Labs: Abnormal Lab Results - Last 24 Hours (Table) 06/24/16 Range/Units 05:30 Chloride 108 H (98-107) mmol/L BUN 57 H (9-20) mg/dL Creatinine 3.51 H (0.66-1.25) mg/dL Glucose 116 H (74-99) mg/dL Calcium 8.3 L (8.4-10.2) mg/dL Assessment and Plan Plan: Impression 1. 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 No documentation of proteinuria in this hospital EMR 2. Admitted with worsening edema currently on Lasix IV 10 mg per hour responding subjectively although urine output has been measured at 1700 mL only for the last 24 hours. 3. Hypertension controlled at target 4. Anemia of chronic kidney disease hemoglobin is 10.2 down from 11.5 and admission likely 10.2 his baseline 11.5 might have been an error. 5. Iron saturations 40% patient has been given IV Ferrlecit 125 mg daily for the last 2 days for a total of 3 doses Recommendation. Continue IV Lasix drip and repeat BMP. Watch hemoglobin, creatinine, electrolytes
--- NOTE | 2016-06-24 21:36 | PN ---
DATE OF SERVICE: 06/24/2016 PRESENTING COMPLAINT: Edema. INTERVAL HISTORY: This patient has anasarca, chronic kidney disease stage IV, had been on Lasix putting. Putting out urine. Breathing is better. Has been out in the hallway. Did tolerate some diet. Review of systems done for constitutional, cardiovascular, GI, pulmonary; relevant findings as above. Current medications are reviewed and include IV Lasix drip. On examination, temperature 97.5, pulse 73, respirations 16, blood pressure 132/73, pulse ox 96% on room air. GENERAL APPEARANCE: Sitting up in bed, not in distress. EYES: Pupils equal. Conjunctivae normal. NECK: JVD unable to assess. Mass not palpable. RESPIRATORY: Effort normal. LUNGS: Slightly decreased breath sounds. CARDIOVASCULAR: First and second sounds normal. No edema present. ABDOMEN: Distended, soft. Liver and spleen not palpable. PSYCHIATRY: Alert and oriented x3. Mood and affect normal. INVESTIGATIONS: Potassium 4.8. BUN 57, creatinine 3.51. ASSESSMENT: 1. Diabetes mellitus type 2. 2. Coronary artery disease with prior history of stent. 3. Gastroesophageal reflux disease. 4. Essential hypertension. 5. Chronic kidney disease, stage IV. 6. Anemia of chronic kidney disease with iron deficiency anemia. PLAN: At this point, patient is to be maintained on Lasix drip. The patient is maintaining some negative fluid balance. Does feel a bit better. Will follow.
[2016-06-25] MEDS: CARVEDILOL 12.5 MG TAB PO SCH ×2 (06:32→18:10)
[2016-06-25] MEDS: CITALOPRAM HYDROBROMIDE 20 MG TAB PO SCH (08:05)
[2016-06-25] MEDS: MAGNESIUM OXIDE 400 MG TAB PO SCH (08:05)
[2016-06-25] MEDS: ASPIRIN 325 MG TAB PO SCH (08:05)
[2016-06-25] MEDS: hydrALAZINE HCL 50 MG TAB PO SCH ×2 (08:05→20:58)
[2016-06-25] MEDS: CLOPIDOGREL 75 MG TAB PO SCH (08:05)
[2016-06-25] MEDS: ISOSORBIDE MONONITRATE ER 30 MG TAB.ER.24H PO SCH ×2 (08:05→20:58)
[2016-06-25] MEDS: SODIUM FERRIC GLUCONAT-SUCROSE 125 MG in SODIUM CHLORIDE 0.9% 100 ML IVPB SCH (09:17)
--- NOTE | 2016-06-25 12:14 | P.PN ---
Subjective This is a 50-year-old male known with chronic kidney disease stage IV who was admitted with worsening edema. He's been treated with IV Lasix 10 mg per hour. His face is feeling better less swollen. Denies any dizziness cough fever chills has a good appetite. He wants to be discharged. He denies any cramps dizziness. His baseline creatinine has ranged between 2.45 in 2013-4.1 in 2014 and more recently on 02/22/2016 was 3.49. Known with diabetes mellitus and hyperlipidemia hypertension and congestive heart failure. He had heart catheterization with stent and pacemaker. Objective - Vital Signs Vital signs: Vital Signs Temp 97.5 F L 06/25/16 08:00 Pulse 77 06/25/16 08:00 Resp 16 06/25/16 08:00 BP 140/79 06/25/16 08:00 Pulse Ox 94 L 06/25/16 08:00 Intake & Output 06/24/16 06/25/16 06/25/16 18:59 06:59 18:59 Intake Total 954.167 505 Output Total 550 2375 500 Balance 404.167 -2375 5 Weight 80.1 kg Intake: IV 220 385 0.9 30 95 Furosemide 250 mg In 90 190 Sodium Chloride 0.9% 225 ml @ 10 MG/HR 10 mls/hr IVP .Q24H [facility] Rx#: [id number] Sodium Ferric Gluconat- 100 100 Sucrose 125 mg In Sodium Chloride 0.9% 100 ml @ 100 mls/hr IVPB DAILY [facility] Rx#:[id number] Intake, IV Titration 194.167 Amount Furosemide 250 mg In 194.167 Sodium Chloride 0.9% 225 ml @ 10 MG/HR 10 mls/hr IVP .Q24H [facility] Rx#: [id number] Oral 540 120 Output: Urine 550 2375 500 Other: Voiding Method Urinal # Voids 1 2 On examination is awake alert oriented comfortable A chin exam no JVP neck is supple no facial asymmetry. Lungs clear to auscultation percussion good air entry bilaterally Heart sounds are unremarkable except for a grade 1-2 systolic ejection murmur. The carotid upstroke is normal therefore this probably is a flow murmur of aortic area. Abdomen soft nontender slightly distended. Extremity exam reveals trace edema. There is some edema in his sacral area. Neurologically awake alert oriented. There that he needs to go on dialysis soon within weeks - Labs CBC & Chem 7: 06/22/16 07:17 06/24/16 05:30 Assessment and Plan Plan: Impression 1. 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 No documentation of proteinuria in this hospital EMR. A urine protein to creatinine ratio is pending 2. Admitted with worsening edema currently on Lasix IV 10 mg per hour responding subjectively although urine output has been measured at 1700 mL yesterday and 29 25 mL today. 3. Hypertension controlled at target 4. Anemia of chronic kidney disease hemoglobin is 10.2 down from 11.5 and admission likely 10.2 his baseline 11.5 might have been an error. 5. Iron saturations 40% patient has been given IV Ferrlecit 125 mg daily for the last 2 days for a total of 3 doses Recommendation. Discontinue IV Lasix. Start by mouth Lasix 80 mg twice a day. Her graft he may be discharged but he'll need to be followed up in the office in the next 24- 48 hours. He will need to keep strict blood pressure records at home, weight records, he'll need labs to be drawn the next 48 hours. He is aware that he may need Dialysis in the next few days to weeks.
--- NOTE | 2016-06-25 12:56 | P.PN ---
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 The patient has been experiencing progressive bilateral lower extremities edema and progressive abdominal distention as well. He denies having any chest pain or chest discomfort. Denies having any shortness of breath. No dizziness or lightheadedness and no syncope. The EKG showed atrial sensed ventricular paced rhythm. The BNP came in to be very elevated as well. The patient has significant bilateral lower extremities edema on physical examination. The patient was started on Lasix drip by the nephrology service with significant improvement in the edema and shortness of breath. On follow-up with him today, he denies having any chest pain or discomfort and he stated that the shortness of breath has improved. On physical examination he seems to be euvolemic. Objective - Vital Signs Vital signs: Vital Signs Temp 97.5 F L 06/25/16 08:00 Pulse 77 06/25/16 08:00 Resp 16 06/25/16 08:00 BP 140/79 06/25/16 08:00 Pulse Ox 94 L 06/25/16 08:00 Intake & Output 06/24/16 06/25/16 06/25/16 18:59 06:59 18:59 Intake Total 954.167 505 Output Total 550 2375 500 Balance 404.167 -2375 5 Weight 80.1 kg Intake: IV 220 385 0.9 30 95 Furosemide 250 mg In 90 190 Sodium Chloride 0.9% 225 ml @ 10 MG/HR 10 mls/hr IVP .Q24H [facility] Rx#: [id number] Sodium Ferric Gluconat- 100 100 Sucrose 125 mg In Sodium Chloride 0.9% 100 ml @ 100 mls/hr IVPB DAILY [facility] Rx#:[id number] Intake, IV Titration 194.167 Amount Furosemide 250 mg In 194.167 Sodium Chloride 0.9% 225 ml @ 10 MG/HR 10 mls/hr IVP .Q24H [facility] Rx#: [id number] Oral 540 120 Output: Urine 550 2375 500 Other: Voiding Method Urinal # Voids 1 2 - Constitutional General appearance: Present: no acute distress - Respiratory Respiratory: bilateral: diminished - Cardiovascular Heart sounds: normal: S1, S2 - Labs CBC & Chem 7: 06/22/16 07:17 06/24/16 05:30 Assessment and Plan Plan: Assessment #1 congestive heart failure exacerbation systolic dysfunction #2 known severe cardiomyopathy and status post AICD #3 multiple comorbid conditions Plan #1 continue the patient on IV diuretics #2 possible discharge in the next 24 hours
[2016-06-25] MEDS: FUROSEMIDE 250 MG in SODIUM CHLORIDE 0.9% 225 ML IVP SCH (13:20)
[2016-06-25] MEDS: FUROSEMIDE 80 MG TAB PO SCH (16:17)
--- NOTE | 2016-06-25 19:18 | P.CONS ---
History of Present Illness - Reason for Consult Consult date: 06/25/16 - Chief Complaint Leg ulceration - History of Present Illness 50-year-old male presents to Hospital from outpatient office with increasing difficulties with lower extremity edema, ascites and chest pain. The patient has a known history of multiple medical troubles. He is known to have end- stage renal disease apparently is being readied for hemodialysis due to his stage IV kidney disease. Dario presents to hospital with some shortness of breath with fatigue and malaise as well as lower extremity edema and some increasing abdominal girth. He has known severe underlying coronary artery disease which is of concern sincerity has an AICD. Cardiology is following. Does not appear to have extensive plans for intervention at this time. Patient relates for the last multiple months she's had nonhealing ulceration to the left pretibial area. He is unsure how it started. He believes it may have been traumatic but he really does not recall. He has put some Band-Aids and antibiotic ointment on it with no improvement over time. He is denying other acute difficulties at that site. He is having no fevers chills rigors or sweats. Overall feels very poorly for his age. Review of Systems HEENT:Denies headache or acute visual change. Denies sinus or mouth discomforts. Denies neck stiffness or pain. Denies significant oral cavity pain. Denies difficulty on swallowing. Lungs: Denies significant shortness of breath, cough, sputum production, or hemoptysis. Cardiovascular: Denies significant shortness of breath, chest wall pain, orthopnea, dyspnea on exertion, syncope or chest pain admission encephali improved. He is at his baseline shortness of breath Gastrointestinal:Denies nausea, vomiting, diarrhea, constipation, hematemesis, melena, hematochezia. No no significant change of bowel habit noticed. Musculoskeletal: denies significant myalgias or arthralgias. No new joint swelling. Denies new back pain. Skin: Denies new rash or lesions. No new ulcers or wounds are related.. Neuro: Denies headache or visual change. Denies any new onset weakness or difficulty with ambulation. Denies falls or seizures. Psychiatric:Denies anxiety or depression. Endocrine: Ongoing fatigue and difficulties with weight gain from excessive fluid Past Medical History Past Medical History: Heart Failure, Diabetes Mellitus, Hyperlipidemia, Hypertension, Renal Disease Additional Past Medical History / Comment(s): Hx chronic kidney disease,stage 4 , Hx. CHF, MS, Neuropathy History of Any Multi-Drug Resistant Organisms: None Reported Past Surgical History: Heart Catheterization With Stent, Pacemaker Additional Past Surgical History / Comment(s): Hx. vasectomy, pacemaker defibulator 06/08/2014 Past Anesthesia/Blood Transfusion Reactions: No Reported Reaction Date of Last Stent Placement:: jun 2014 Type of Cardiac Device: Permanent Pacemaker, AICD Device Placement Date:: 06/08/2014 Past Psychological History: Depression Additional Psychological History / Comment(s): single. Lives with his parents. No tobacco use, no injection drug use, no alcohol use. No experience. No international travel. Pet dog in the home. 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 Smoking Status: Current every day smoker Past Alcohol Use History: None Reported Past Drug Use History: Marijuana Additional Drug Use History / Comment(s): pt states he smokes "half of a pack per day" and uses "medical marijuana" - Past Family History Mother Additional Family Medical History / Comment(s): Mother-stent son-1 kidney Medications and Allergies Home Medications and Allergies Comment(s): Current Medications Acetaminophen (Tylenol Tab) 650 mg PO Q6HR PRN PRN Reason: Mild Pain or Fever > 100.5 Acetaminophen/Hydrocodone Bitart ([place] 5-325) 1 each PO Q4HR PRN PRN Reason: Moderate Pain Last Admin: 06/21/16 17:35 Dose: 1 each Aspirin (Aspirin) 325 mg PO DAILY [facility] Last Admin: 06/25/16 08:05 Dose: 325 mg Carvedilol (Coreg) 25 mg PO BID-W/MEALS [facility] Last Admin: 06/25/16 18:10 Dose: 25 mg Citalopram Hydrobromide (Celexa) 20 mg PO DAILY [facility] Last Admin: 06/25/16 08:05 Dose: 20 mg Clopidogrel Bisulfate (Plavix) 75 mg PO DAILY [facility] Last Admin: 06/25/16 08:05 Dose: 75 mg Furosemide (Lasix) 80 mg PO BID@0900,1600 [facility] Last Admin: 06/25/16 16:17 Dose: 80 mg Hydralazine HCl (Apresoline) 50 mg PO BID [facility] Last Admin: 06/25/16 08:05 Dose: 50 mg Hydromorphone HCl (Dilaudid) 1 mg PO Q3HR PRN PRN Reason: Severe Pain Ferric Sodium Gluconate 125 mg (/ Sodium Chloride) 110 mls @ 100 mls/hr IVPB DAILY [facility] Stop: 06/26/16 23:31 Last Admin: 06/25/16 09:17 Dose: 100 mls/hr Isosorbide Mononitrate (Imdur) 30 mg PO BID [facility] Last Admin: 06/25/16 08:05 Dose: 30 mg Lorazepam (Ativan) 0.5 mg IV Q6HR PRN PRN Reason: Anxiety Magnesium Oxide (Mag-Ox) 400 mg PO DAILY [facility] Last Admin: 06/25/16 08:05 Dose: 400 mg Naloxone HCl (Narcan) 0.2 mg IV Q2M PRN PRN Reason: Opioid Reversal Ondansetron HCl (Zofran) 4 mg IVP Q8HR PRN PRN Reason: Nausea And Vomiting Home Medications Medication Instructions Recorded Confirmed Type Aspirin 81 mg PO DAILY 01/24/14 06/21/16 History Clopidogrel [Plavix] 75 mg PO DAILY 02/19/15 06/21/16 History Carvedilol [Coreg] 25 mg PO Q12H 02/20/15 06/21/16 History Omeprazole [PriLOSEC] 20 mg PO AC-BRKFST 02/20/15 06/21/16 History Cholecalciferol [Vitamin D3] 2,000 unit PO DAILY 06/21/16 06/21/16 History Furosemide [Lasix] 40 mg PO BID 06/21/16 06/21/16 History Isosorbide Mononitrate ER [Imdur] 30 mg PO BID 06/21/16 06/21/16 History Magnesium Oxide [Mag-Ox] 400 mg PO DAILY 06/21/16 06/21/16 History amLODIPine [Norvasc] 10 mg PO DAILY 06/21/16 06/21/16 History hydrALAZINE HCL [Apresoline] 50 mg PO BID 06/21/16 06/21/16 History Allergies Allergy/AdvReac Type Severity Reaction Status Date / Time No Known Allergies Allergy Verified 06/21/16 13:49 Physical Exam Vitals: Vital Signs Temp Pulse Resp BP Pulse Ox 06/25/16 16:00 97.5 F L 55 L 18 135/75 94 L 06/25/16 12:00 98 F 54 L 16 116/66 93 L 06/25/16 08:00 97.5 F L 77 16 140/79 94 L 06/25/16 04:00 56 L 14 132/71 95 06/25/16 00:00 56 L 06/24/16 23:19 56 L 16 118/71 96 06/24/16 20:00 97.0 F L 53 L 14 125/67 94 L Intake and Output 06/25/16 06/25/16 06/25/16 06:59 14:59 22:59 Intake Total 625 240 Output Total 1825 500 Balance -1825 125 240 Intake: IV 385 0.9 95 Furosemide 250 mg In 190 Sodium Chloride 0.9% 225 ml @ 10 MG/HR 10 mls/hr IVP .Q24H [facility] Rx#: [id number] Sodium Ferric Gluconat- 100 Sucrose 125 mg In Sodium Chloride 0.9% 100 ml @ 100 mls/hr IVPB DAILY [facility] Rx#:[id number] Oral 240 240 Output: Urine 1825 500 Other: Voiding Method Urinal # Voids 2 Weight 80.1 kg 50-year-old male who looks older than his stated age. Seems to be modestly comfortable at this time. HEENT: Anicteric conjunctiva are pink and moist nasal mucosa grossly intact without significant lesions, there is no thrush. Neck: The neck is supple without significant lymphadenopathy or thyromegaly. Lungs: Good bilateral air entry without significant crackles or wheezing. There is no significant bronchial sounds. There is no egophony or dullness. Heart: Irregular with an audible S1 and S2 soft S4 2/6 systolic murmur left sternal border that radiates to the axilla. PMI is nondisplaced no heave or thrill Abdomen: Positive bowel sounds soft and nontender without palpable masses or organomegaly. There was no guarding or rebound. No palpable fluid wave Extremities: Upper and lower extremities have evidence of some ongoing edema. Left lower extremity without acute lesions. Looks or symptoms of the ulceration which is pretibial nature on the right. Measuring at 1.5 x 1.5 x 0.2 cm. No surrounding cellulitic changes. No ascending erythema. No lymphadenopathy is noted in the right groin or other lymph nodes at this time. Neuro: Awake alert oriented to person place and time. There are no acute new gross focal sensory motor deficits. Results CBC & Chem 7: 06/22/16 07:17 06/24/16 05:30 Labs: Laboratory Results WBC 5.3 k/uL (3.8-10.6) 06/22/16 07: RBC 3.76 m/uL (4.30-5.90) L 06/22/16 07: Hgb 10.2 gm/dL (13.0-17.5) L 06/22/16 07: Hct 33.1 % (39.0-53.0) L 06/22/16 07: MCV 88.0 fL (80.0-100.0) 06/22/16 07: MCH 27.0 pg (25.0-35.0) 06/22/16 07: MCHC 30.7 g/dL (31.0-37.0) L 06/22/16 07: RDW 15.3 % (11.5-15.5) 06/22/16 07: Plt Count 267 k/uL (150-450) 06/22/16 07:17 Neutrophils % 68 % 06/22/16 07:17 Lymphocytes % 18 % 06/22/16 07:17 Monocytes % 8 % 06/22/16 07:17 Eosinophils % 4 % 06/22/16 07: Basophils % 1 % 06/22/16 07:17 Neutrophils # 3.6 k/uL (1.3-7.7) 06/22/16 07:17 Lymphocytes # 0.9 k/uL (1.0-4.8) L 06/22/16 07: Monocytes # 0.4 k/uL (0-1.0) 06/22/16 07:17 Eosinophils # 0.2 k/uL (0-0.7) 06/22/16 07: Basophils # 0.1 k/uL (0-0.2) 06/22/16 07: Hypochromasia Slight 06/22/16 07:17 PT 12.6 sec (9.0-12.0) H 06/21/16 13:50 INR 1.3 (<1.1) 06/21/16 13:50 APTT 25.0 sec (22.0-30.0) 06/21/16 13:50 Sodium 140 mmol/L (137-145) 06/24/16 05:30 Potassium 4.8 mmol/L (3.5-5.1) 06/24/16 05:30 Chloride 108 mmol/L (98-107) H 06/24/16 05:30 Carbon Dioxide 22 mmol/L (22-30) 06/24/16 05:30 Anion Gap 10 mmol/L 06/24/16 05:30 BUN 57 mg/dL (9-20) H 06/24/16 05:30 Creatinine 3.51 mg/dL (0.66-1.25) H 06/24/16 05:30 Est GFR (MDRD) Af Amer 23 (>60 ml/min/1.73 sqM) 06/24/16 05:30 Est GFR (MDRD) Non-Af 19 (>60 ml/min/1.73 sqM) 06/24/16 05:30 Glucose 116 mg/dL (74-99) H 06/24/16 05:30 POC Glucose (mg/dL) 148 mg/dL (75-99) H 06/23/16 17:06 POC Glu Rivet Sorter Racheal Hernandez 06/23/16 17:06 Calcium 8.3 mg/dL (8.4-10.2) L 06/24/16 05:30 Phosphorus 4.7 mg/dL (2.5-4.5) H 06/22/16 14:00 Magnesium 1.7 mg/dL (1.6-2.3) 06/21/16 13:50 Iron 45 ug/dL (49-181) L 06/22/16 07:17 TIBC 309 ug/dL (261-462) 06/22/16 07:17 % Saturation 14.6 % (20-50) L 06/22/16 07:17 Ferritin 37 ng/mL (18-464) 06/22/16 07:17 Total Bilirubin 2.5 mg/dL (0.2-1.3) H 06/22/16 07:17 AST 14 U/L (17-59) L 06/22/16 07:17 ALT 28 U/L (21-72) 06/22/16 07:17 Alkaline Phosphatase 97 U/L (38-126) 06/22/16 07:17 Total Creatine Kinase 229 U/L (55-170) H 06/21/16 13:50 CK-MB (CK-2) 2.0 ng/mL (0.0-2.4) 06/21/16 13:50 CK-MB (CK-2) Rel Index 0.9 06/21/16 13:50 Troponin I 0.019 ng/mL (0.000-0.034) 06/21/16 13:50 NT-Pro-B Natriuret Pep 81184 pg/mL 06/21/16 13:50 Total Protein 5.8 g/dL (6.3-8.2) L 06/22/16 07:17 Albumin 3.2 g/dL (3.5-5.0) L 06/22/16 07:17 Ur Random Creatinine 39.3 mg/dL 06/24/16 21:48 U Random Total Protein mg/dL (<12) 06/24/16 21:48 Assessment and Plan (1) CKD (chronic kidney disease) Status: Acute (2) Systolic CHF, acute on chronic Status: Acute (3) Venous ulcer of right lower extremity without varicose veins Narrative/Plan: 50-year-old male who has extensive underlying medical illness with his chronic diabetes and hypertension. He has developed end-stage renal disease and is a candidate for hemodialysis in the near future. It appears that his renal disease etiology of his volume overload, shortness of breath or heart failure. There were does appear to have a cardiomyopathy and has an AICD in place already. Chest pain is improved and is being followed by cardiology. There is chronic lower extremity edema he has an ulceration to the right lower extremity. Denies any prior deep venous thrombosis. We do well to have imaging studies of lower extremity to evaluate his arterial and venous status. He has adequate arterial studies CT been following the wound center for compression wraps. For now honey dressing can be applied to the area gently wrap into place. It does not appear to be infected would not utilize antibiotic therapy at this time. Receives a multivitamin from nephrology. Status: Acute
[2016-06-26 05:10] VITALS: RESP 16
[2016-06-26] MEDS: CARVEDILOL 12.5 MG TAB PO SCH (06:39)
[2016-06-26] MEDS: SODIUM FERRIC GLUCONAT-SUCROSE 125 MG in SODIUM CHLORIDE 0.9% 100 ML IVPB SCH (09:14)
[2016-06-26] MEDS: ISOSORBIDE MONONITRATE ER 30 MG TAB.ER.24H PO SCH (09:17)
[2016-06-26] MEDS: CITALOPRAM HYDROBROMIDE 20 MG TAB PO SCH (09:17)
[2016-06-26] MEDS: ASPIRIN 325 MG TAB PO SCH (09:17)
[2016-06-26] MEDS: hydrALAZINE HCL 50 MG TAB PO SCH (09:17)
[2016-06-26] MEDS: FUROSEMIDE 80 MG TAB PO SCH (09:17)
[2016-06-26] MEDS: CLOPIDOGREL 75 MG TAB PO SCH (09:17)
[2016-06-26] MEDS: MAGNESIUM OXIDE 400 MG TAB PO SCH (09:17)
--- NOTE | 2016-06-26 11:00 | P.PN ---
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 The patient has been experiencing progressive bilateral lower extremities edema and progressive abdominal distention as well. He denies having any chest pain or chest discomfort. Denies having any shortness of breath. No dizziness or lightheadedness and no syncope. The EKG showed atrial sensed ventricular paced rhythm. The BNP came in to be very elevated as well. The patient has significant bilateral lower extremities edema on physical examination. The patient was started on Lasix drip then he was started on Lasix PO. On follow-up with him today he is feeling better in terms of shortness of breath. He still have bilateral lower extremities edema. From the cardiac standpoint of view, the patient can be discharged home. Objective - Vital Signs Vital signs: Vital Signs Temp 98 F 06/26/16 08:00 Pulse 58 L 06/26/16 08:00 Resp 16 06/26/16 08:00 BP 141/76 06/26/16 08:00 Pulse Ox 95 06/26/16 08:00 Intake & Output 06/25/16 06/26/16 06/26/16 18:59 06:59 18:59 Intake Total 865 718 Output Total 500 1000 Balance 365 -1000 718 Weight 78.6 kg Intake: IV 385 0.9 95 Furosemide 250 mg In 190 Sodium Chloride 0.9% 225 ml @ 10 MG/HR 10 mls/hr IVP .Q24H [facility] Rx#: [id number] Sodium Ferric Gluconat- 100 Sucrose 125 mg In Sodium Chloride 0.9% 100 ml @ 100 mls/hr IVPB DAILY [facility] Rx#:[id number] Oral 480 718 Output: Urine 500 1000 Other: Voiding Method Urinal Urinal # Voids 1 # Bowel Movements 0 - Constitutional General appearance: Present: no acute distress - Respiratory Respiratory: bilateral: diminished - Cardiovascular Heart sounds: normal: S1, S2 Abnormal Heart Sounds: Present: systolic murmur - Labs CBC & Chem 7: 06/22/16 07:17 06/24/16 05:30 Assessment and Plan Plan: Assessment #1 congestive heart failure exacerbation systolic dysfunction #2 known severe cardiomyopathy and status post AICD #3 multiple comorbid conditions Plan #1 the patient currently is on Lasix by mouth #2 from the cardiac standpoint he can be discharged home
[2016-06-26 13:01] VITALS: BP 128/74; PULSE 55; TEMP 97
--- NOTE | 2016-06-26 21:44 | PN ---
DATE OF SERVICE: 06/25/2016 PRESENTING COMPLAINT: Edema. INTERVAL HISTORY: This patient was seen by me yesterday on 06/25/2016. Patient presented with anasarca, chronic kidney disease, stage IV; had been on Lasix. Edema has been coming down. Feeling better. Review of systems done for constitutional, cardiovascular, GI, pulmonary; relevant findings as above. Current medications are reviewed that include p.o. Lasix. On examination, temperature 98, pulse 54, respiration 16, blood pressure 106/66, pulse ox 93% on room air. GENERAL APPEARANCE: Sitting up, not in distress. EYES: Pupils equal. Conjunctivae normal. NECK: JVD unable to assess. Mass not palpable. RESPIRATORY: Effort normal. LUNGS: Decreased breath sounds. CARDIOVASCULAR: First and second sounds normal. Decreased edema. ABDOMEN: Soft, nontender. Liver and spleen not palpable. PSYCHIATRY: Alert and oriented x3. Mood and affect normal. Right lower extremity has got a superficial venous ulcer on the cheng. INVESTIGATIONS: No blood work from today. ASSESSMENT: 1. Anasarca due to renal failure. 2. Diabetes mellitus, type 2. 3. Coronary artery disease with prior history of stent. 4. Gastroesophageal reflux disease. 5. Essential hypertension. 6. Chronic kidney disease, stage IV, due to diabetic nephropathy. 7. Anemia of chronic kidney disease with iron deficiency anemia. PLAN: Continue medication and treatment plan. If continues to do well, probably discharge tomorrow.
--- NOTE | 2016-06-26 22:38 | DS ---
DATE OF ADMISSION: 06/21/2016 DATE OF DISCHARGE: 06/26/2016 FINAL DIAGNOSES: 1. Anasarca secondary to severe kidney disease. 2. Diabetes mellitus type 2. 3. Coronary artery disease with prior history of stent. 4. Gastroesophageal reflux disease. 5. Essential hypertension. 6. Chronic kidney disease stage 4 due to diabetic nephropathy. 7. Anemia of chronic disease with iron-deficiency anemia. 8. Right lower extremity venous ulcer. 9. Acute on chronic congestive heart failure exacerbation from systolic dysfunction; ejection fraction less than 20%,. 10. Moderate tricuspid regurgitation, nonrheumatic. 11. Severe secondary pulmonary hypertension due to congestive heart failure. HOSPITAL COURSE: This patient presented with CHF exacerbation, anasarca, renal failure, responded well to diuresis. Two-D echo shows EF of 20%. Patient will probably need dialysis down the road. CONSULTATIONS: Dr. Glaser from cardiology, Dr. Paredes of infectious disease, Dr. Leslie from nephrology. Patient's BUN/creatinine is 57/3.51 at the time of discharge. DISCHARGE MEDICATIONS: 1. Aspirin 81 mg a day. 2. Plavix 75 mg a day. 3. Coreg 25 mg p.o. q.12. 4. Prilosec 20 mg with breakfast. 5. Vitamin D3, 2000 units p.o. daily. 6. Imdur ER 30 mg b.i.d. 7. Magnesium oxide 400 mg p.o. daily. 8. Hydralazine 50 mg p.o. b.i.d. 9. Celexa 20 mg a day. 10. Lasix 80 mg p.o. daily. 11. [place] 5, 1 tablet q.4 p.r.n. Follow up with Dr. Ivan in [address] Emily Valentin in 1 week. Follow up with Cardiology in 1 week.
[2016-06-28 15:25] LABS: Mis test requested (Non-blood) Urine Total Protein
--- NOTE | 2016-07-24 12:12 | DS ---
ADDENDUM: DATE OF ADMISSION: 06/21/2016 DATE OF DISCHARGE: 06/26/2016 On examination: ABDOMEN: Soft, nontender. Liver and spleen not palpable. Right lower extremity has got a superficial venous ulcer. PSYCH: Alert and oriented x3.
== END 2016-06-26 13:38 | disposition home or self-care (01) | DRG 291 ==
LOC: EC 13:09 → 4MS4W 17:03 → 6SEL 06-23 15:07
PROVIDERS: ADMIT Internal Medicine; ATTEND Internal Medicine
DX: I13.0 Hypertensive heart and chronic kidney disease with heart failure and stage 1 through stage 4 chronic kidney disease, or unspecified chronic kidney disease (principal); I50.23 Acute on chronic systolic (congestive) heart failure; N18.4 Chronic kidney disease, stage 4 (severe); R18.8 Other ascites; E11.21 Type 2 diabetes mellitus with diabetic nephropathy; I27.2 Other secondary pulmonary hypertension; E11.622 Type 2 diabetes mellitus with other skin ulcer; L97.919 Non-pressure chronic ulcer of unspecified part of right lower leg with unspecified severity; N04.9 Nephrotic syndrome with unspecified morphologic changes; I36.1 Nonrheumatic tricuspid (valve) insufficiency; E78.5 Hyperlipidemia, unspecified; F12.90 Cannabis use, unspecified, uncomplicated; F17.200 Nicotine dependence, unspecified, uncomplicated; I25.10 Atherosclerotic heart disease of native coronary artery without angina pectoris; I25.5 Ischemic cardiomyopathy; K21.9 Gastro-esophageal reflux disease without esophagitis; D50.9 Iron deficiency anemia, unspecified; D63.1 Anemia in chronic kidney disease; E11.22 Type 2 diabetes mellitus with diabetic chronic kidney disease; Z79.82 Long term (current) use of aspirin; Z82.49 Family history of ischemic heart disease and other diseases of the circulatory system; Z95.5 Presence of coronary angioplasty implant and graft; Z95.810 Presence of automatic (implantable) cardiac defibrillator; Z79.02 Long term (current) use of antithrombotics/antiplatelets; Z79.899 Other long term (current) drug therapy
CPT/HCPCS: 36415; 71020; 80048; 80053; 82550; 82553; 82570; 82728; 83540; 83550; 83735; 83880; 84100; 84156; 84484; 85025; 85610; 85730; 93005; 93306; 94760; 96374; 96375; 99284

== ENCOUNTER 2016-09-06 06:33 | Day surgery (SDC) | payer OTHER ==
--- NOTE | 2016-08-26 08:21 | HP ---
DATE OF ADMISSION: CHIEF COMPLAINT: Renal failure. HISTORY OF PRESENT ILLNESS: The patient is a 50-year-old with a history of end-stage renal disease. The patient is seen in the office to discuss peritoneal dialysis catheter insertion. He is not currently on dialysis. He has investigated hemodialysis as well but would prefer starting with peritoneal dialysis. No known hernias. No prior catheters, PAST MEDICAL HISTORY: End-stage renal disease, GERD, hypertension, coronary artery disease. Past surgical history is defibrillator, pacemaker. MEDICATIONS: 1. Plavix. 2. Amlodipine. 3. Hydralazine. 4. Lasix. 5. Omeprazole. 6. Coreg. 7. Carvedilol. 8. Isosorbide mononitrate. ALLERGIES: None. PHYSICAL EXAMINATION: GENERAL: Well-developed, well-nourished male in no distress. HEENT: Normocephalic. Sclerae anicteric. CHEST: No deformities. ABDOMEN: Soft, nontender, nondistended. No palpable hernias. EXTREMITIES: 1+ edema. IMPRESSION: A 50-year-old male with renal failure. PLAN: Will proceed with peritoneal dialysis catheter insertion on 09/06. The risks of bleeding, infection, hernia, bowel injury, catheter malfunction and peritonitis. The patient understands and wishes to proceed.
[2016-09-04 13:07] VITALS: BMI 28.1
[~2016-09-06 06:33] MED LIST: DEXAMETHASONE SOD PHOSPHATE 10 MG/ML 1 ML VIAL IV ONE; HEPARIN SODIUM,PORCINE 5,000 UNIT/ML 1 ML VIAL SQ ONE; HYDROmorphone 1 MG/ML 1 ML SYRINGE IVP PRN; LACTATED RINGERS 1,000 ML IV SCH; MIDAZOLAM 2 MG/2 ML VIAL IV PRN; ONDANSETRON 4 MG/2 ML VIAL IVP ONE; SCOPOLAMINE 1.5MG/72HR PATCH TRANSDERM ONE; ceFAZolin 2 GM in SODIUM CHLORIDE 0.9% 100 ML IVPB ONE
[2016-09-06 06:48] VITALS: RESP 16; TEMP 97.7
[2016-09-06 06:59] LABS: Glucose,Whole Blood 168 mg/dL (75-99)
[2016-09-06] MEDS ORDERED: LIDOCAINE 1% 20 ML VIAL (10MG/ML) FOR IV START INTRADERMA ONE (07:02)
[2016-09-06] MEDS ORDERED: fentaNYL (PF) 50 MCG/ML 2 ML AMP ONE (08:06)
[2016-09-06] MEDS ORDERED: GLYCOPYRROLATE 0.2 MG/ML 2 ML VIAL ONE (08:06)
[2016-09-06] MEDS ORDERED: ceFAZolin 1,000 MG VIAL ONE (08:06)
[2016-09-06] MEDS ORDERED: KETAMINE 10 MG/ML 20 ML VIAL ONE (08:06)
[2016-09-06] MEDS ORDERED: PROPOFOL 10 MG/ML 20 ML VIAL IV ONE (08:06)
[2016-09-06] MEDS ORDERED: MIDAZOLAM 2 MG/2 ML VIAL ONE (08:06)
[2016-09-06] MEDS ORDERED: MINERAL OIL 1 APPLIC/ML OIL TOPICAL ONE (08:19)
[2016-09-06] MEDS ORDERED: BUPIVACAIN-EPI 0.25%-1:200,000 30 ML VIAL SQ ONE ×2 (08:19)
[2016-09-06] MEDS ORDERED: NALOXONE 0.4 MG/ML 1 ML VIAL IV PRN (09:34)
[2016-09-06] MEDS ORDERED: HYDROcodone/APAP 5-325MG 1 EACH TAB PO PRN (09:34)
--- NOTE | 2016-09-06 09:44 | P.PCN ---
Date of Procedure: 09/06/16 Procedure(s) Performed: PREOPERATIVE DIAGNOSIS: Renal failure POSTOPERATIVE DIAGNOSIS: Same PROCEDURE: Peritoneal dialysis catheter insertion SURGEON: Alanis EBL: Minimal ANESTHESIA: Sedation plus local COMPLICATIONS: None OPERATIVE PROCEDURE: The patient was placed in the operative table in the supine position. His abdomen was prepped and draped in usual sterile fashion. A small vertical incision was made in the left periumbilical location. Dissection down through the subcutaneous tissues took place using electrocautery. The anterior rectus was divided vertically using the scalpel. The rectus was bluntly. The posterior rectus was visualized. An 0 Vicryl pursestring was placed. A small opening in the posterior rectus fascia and peritoneum took place using a Metzenbaum scissors. There were no adhesions to the suture that was placed. The patient had a large volume of serous fluid already within the peritoneal cavity approximately 500 mL was evacuated. The pigtail catheter was advanced into the pelvis over a stylette. No resistance was met. The inner cuff was secured to the fascia using the 0 Vicryl pursestring that was placed. The catheter was tunneled to an exit site in the right lateral lower quadrant. The catheter was connected to the 1 L bag of saline and approximated 800 mL of saline was easily introduced into the peritoneal cavity. The fluid was then allowed to evacuate. The majority of the fluid was returned. The anterior rectus fascia was then reapproximated using a running 0 Vicryl stitch. The subcutaneous tissues reprepped using 3-0 Vicryl sutures and the skin using 4-0 Monocryl sutures. The outpatient dialysis adapter was applied to the end of the catheter. A sterile dressings then applied after Steri-Strips were placed over the incision. DISPOSITION: Stable to recovery room
[2016-09-06 10:31] VITALS: BP 157/88; PULSE 90
== END 2016-09-06 10:56 | disposition home or self-care (01) ==
LOC: OR 06:33
PROVIDERS: ATTEND Surgery
DX: E11.22 Type 2 diabetes mellitus with diabetic chronic kidney disease (principal); N18.6 End stage renal disease; I25.10 Atherosclerotic heart disease of native coronary artery without angina pectoris; I10 Essential (primary) hypertension; I49.9 Cardiac arrhythmia, unspecified; I25.2 Old myocardial infarction; Z95.810 Presence of automatic (implantable) cardiac defibrillator; E78.5 Hyperlipidemia, unspecified; K21.9 Gastro-esophageal reflux disease without esophagitis; Z79.02 Long term (current) use of antithrombotics/antiplatelets; Z79.82 Long term (current) use of aspirin; Z79.899 Other long term (current) drug therapy
CPT/HCPCS: 49418; J2250; J1644; J1100; J0690 ×2; J2405; J3010; J2704

== ENCOUNTER 2018-01-04 14:24 | Emergency (ER) | payer MEDICARE, OTHER ==
[2018-01-04 14:30] VITALS: RESP 18; TEMP 98.7
--- NOTE | 2018-01-04 14:49 | ED ---
General Adult HPI - General Chief complaint: Chest Pain Stated complaint: Chest pain Source: patient Mode of arrival: EMS Limitations: no limitations - History of Present Illness Initial comments: Dictation was produced using Ur[employer] dictation software. please excuse any grammatical, word or spelling errors. Chief Complaint: 52-year-old male past medical history of end-stage renal disease on peritoneal dialysis, coronary artery disease, [place], supravascular accident presents with History of Present Illness: Chest pain 1 day. He was brought in by EMS for chest pain. He states his chest pain was substernal with radiation to the back. He felt as though symptoms reminded him of when he was diagnosed with a heart attack in the past. EMS was called. Patient was given aspirin and 3 nitroglycerin with improvement of his symptoms. Patient recently lost his medical insurance. He's been without his medications for approximately 3 weeks. Denies any constitutional symptoms. Patient has been keeping up with his peritoneal dialysis. The ROS documented in this emergency department record has been reviewed and confirmed by me. Those systems with pertinent positive or negative responses have been documented in the HPI. All other systems are other negative and/or noncontributory. - Related Data Home Medications Medication Instructions Recorded Confirmed Clopidogrel [Plavix] 75 mg PO DAILY 02/19/15 01/04/18 Carvedilol [Coreg] 25 mg PO DAILY 02/20/15 01/04/18 Isosorbide Mononitrate ER [Imdur] 30 mg PO DAILY 06/21/16 01/04/18 Furosemide [Lasix] 80 mg PO DAILY 09/04/16 01/04/18 Aspirin EC [Ecotrin Low Dose] 81 mg PO DAILY 01/04/18 01/04/18 Calcitriol 0.5 mcg PO DIRECTED 01/04/18 01/04/18 Calcium Acetate [Phoslo] 667 mg PO DAILY 01/04/18 01/04/18 Docusate Sodium [Dok] 100 mg PO DAILY 01/04/18 01/04/18 Hydrocodone/Acetaminophen [[place] 1 - 2 tab PO Q4HR PRN 01/04/18 01/04/18 5-325] Losartan Potassium [Cozaar] 25 mg PO DAILY 01/04/18 01/04/18 Allergies Allergy/AdvReac Type Severity Reaction Status Date / Time No Known Allergies Allergy Verified 01/04/18 14:59 Review of Systems ROS Statement: Those systems with pertinent positive or pertinent negative responses have been documented in the HPI. ROS Other: All systems not noted in ROS Statement are negative. Past Medical History Past Medical History: Blood Disorder, Coronary Artery Disease (CAD), Heart Failure, CVA/TIA, Diabetes Mellitus, GERD/Reflux, Hyperlipidemia, Hypertension, Myocardial Infarction ([place]), Renal Disease Additional Past Medical History / Comment(s): Hx chronic kidney disease, stage 4. ANEMIA. CVA 2012, SL WEAKNESS LT SIDE. Hx MS. Neuropathy IN FEET, HANDS. AICD/PACEMAKER. EDEMA LEGS. Last Myocardial Infarction Date:: 06/2014 History of Any Multi-Drug Resistant Organisms: None Reported Past Surgical History: AICD, Heart Catheterization With Stent, Pacemaker Additional Past Surgical History / Comment(s): Hx Vasectomy. Pacemaker/AICD - [facility]. PTCA W/ 2 STENTS. Past Anesthesia/Blood Transfusion Reactions: No Reported Reaction Date of Last Stent Placement:: jun 2014 Type of Cardiac Device: Permanent Pacemaker, AICD Device Placement Date:: 06/08/2014 Past Psychological History: Depression Smoking Status: Current every day smoker Past Alcohol Use History: None Reported Past Drug Use History: Marijuana - Past Family History Mother Family Medical History: Cancer, Renal Disease Additional Family Medical History / Comment(s): Mother-stent. BLOOD CLOT IN KIDNEY, "KILLED ONE" Sister(s) Family Medical History: Cancer Son(s) Additional Family Medical History / Comment(s): BORN W/ 1 KIDNEY General Exam - General Exam Comments Initial Comments: PHYSICAL EXAM: General Impression: Alert and oriented x3, not in acute distress HEENT: Normocephalic atraumatic, extra-ocular movements intact, pupils equal and reactive to light bilaterally, mucous membranes moist. Cardiovascular: Heart regular rate and rhythm, S1&S2 audible, no murmurs, rubs or gallops Chest: Lungs clear to auscultation bilaterally, no rhonchi, no wheeze, no rales Abdomen: Bowel sounds present, abdomen soft, non-tender, non-distended, no organomegaly, peritoneal dialysis catheter in place Musculoskeletal: Pulses present and equal in all extremities, no peripheral edema Motor: Power 5/5 bilaterally, no focal deficits noted Neurological: CN II-XII grossly intact, no focal motor or sensory deficits noted Skin: Intact with no visualized rashes Psych: Normal affect and mood Limitations: no limitations Course Vital Signs 01/04/18 01/04/18 01/04/18 14:25 14:54 16:08 Temperature 98.7 F Pulse Rate 72 71 78 Respiratory 18 18 18 Rate Blood Pressure 207/97 203/73 209/69 O2 Sat by Pulse 100 99 98 Oximetry Medical Decision Making - Medical Decision Making ED course: 52-year-old male with past medical history coronary artery disease presents with chest pain. Patient is well-known to the emergency department for multiple visitations. Patient is treated by prehospital staff given 3 nitroglycerin and aspirin with improvement of symptoms. Patient has history of pacemaker. Vital signs upon arrival shows blood pressure 217/97, rest of vital signs within normal limits. EKG shows paced rhythm without any criteria to meet sgarbossa. Furthermore, patient is well-appearing and in no acute distress. Patient has any chest pain at this time Laboratory evaluation obtained. No leukocytosis. Hemoglobin is 12.3. Coag panel is unremarkable. Metabolic panel shows creatinine of 7.90. Patient's last creatinine was 3.5. This is above patient's normal baseline. Chronic enzymes are negative. Chest x-ray shows no acute processes. Patient is reevaluated found to be hemodynamically stable. Family was at bedside and reports that he has had his medication. Patient states he's had his medication however he didn't does not want to take them anymore. Discussed with patient that we would like to have him admitted for nephrology consult given that there is some evidence that his hemodialysis is not optimized given highly elevated creatinine. Patient states he did not want to stay. Discussed with patient that if he decides to leave AGAINST MEDICAL ADVICE he could have worsening symptoms which could lead to increased morbidity and possibly even mortality. Patient has multiple issues going on. He is told that his chest pain could reflect acute coronary process and that he could go home and suffer significant heart attack. Patient continued to endorse that he wants to leave. Family was at bedside was urging him to say however he continued to endorse leaving AGAINST MEDICAL ADVICE. Discussed with patient that should he develop any worsening symptoms to return to the emergency department. Patient is understandable and agreeable. EKG Interpretation: A 12 lead EKG was obtained. It was interpreted by myself and attending physician. There is a P wave before every QRS complex. Rate is 66. Rhythm is paced rhythm, DC interval 126, QS 146, QTC 511. QT is not prolonged. No ST segment depression or elevation. This EKG was compared to a previous EKG that was obtained on 06/21/2016 and showed no significant change. Overall, this EKG is unremarkable - Lab Data Result diagrams: 01/04/18 14:37 01/04/18 14:37 Lab Results 01/04/18 01/04/18 01/04/18 Range/Units 14:37 14:37 14:37 WBC 10.0 (3.8-10.6) k/uL RBC 4.14 L (4.30-5.90) m/uL Hgb 12.3 L (13.0-17.5) gm/dL Hct 35.7 L (39.0-53.0) % MCV 86.4 (80.0-100.0) fL MCH 29.8 (25.0-35.0) pg MCHC 34.5 (31.0-37.0) g/dL RDW 12.9 (11.5-15.5) % Plt Count 279 (150-450) k/uL Neutrophils % 75 % Lymphocytes % 15 % Monocytes % 6 % Eosinophils % 3 % Basophils % 0 % Neutrophils # 7.6 (1.3-7.7) k/uL Lymphocytes # 1.5 (1.0-4.8) k/uL Monocytes # 0.6 (0-1.0) k/uL Eosinophils # 0.3 (0-0.7) k/uL Basophils # 0.0 (0-0.2) k/uL PT (9.0-12.0) sec INR (<1.2) APTT (22.0-30.0) sec Sodium 141 (137-145) mmol/L Potassium 3.6 (3.5-5.1) mmol/L Chloride 104 (98-107) mmol/L Carbon Dioxide 24 (22-30) mmol/L Anion Gap 13 mmol/L BUN 57 H (9-20) mg/dL Creatinine 7.90 H* (0.66-1.25) mg/dL Est GFR (CKD-EPI)AfAm 8 (>60 ml/min/1.73 sqM) Est GFR (CKD-EPI)NonAf 7 (>60 ml/min/1.73 sqM) Glucose 134 H (74-99) mg/dL Calcium 7.8 L (8.4-10.2) mg/dL Magnesium 1.9 (1.6-2.3) mg/dL Total Bilirubin 0.7 (0.2-1.3) mg/dL AST 15 L (17-59) U/L ALT 26 (21-72) U/L Alkaline Phosphatase 87 (38-126) U/L Total Creatine Kinase 141 (55-170) U/L CK-MB (CK-2) 1.2 (0.0-2.4) ng/mL CK-MB (CK-2) Rel Index 0.9 Troponin I 0.030 (0.000-0.034) ng/mL Total Protein 6.5 (6.3-8.2) g/dL Albumin 3.9 (3.5-5.0) g/dL 01/04/18 Range/Units 14:37 WBC (3.8-10.6) k/uL RBC (4.30-5.90) m/uL Hgb (13.0-17.5) gm/dL Hct (39.0-53.0) % MCV (80.0-100.0) fL MCH (25.0-35.0) pg MCHC (31.0-37.0) g/dL RDW (11.5-15.5) % Plt Count (150-450) k/uL Neutrophils % % Lymphocytes % % Monocytes % % Eosinophils % % Basophils % % Neutrophils # (1.3-7.7) k/uL Lymphocytes # (1.0-4.8) k/uL Monocytes # (0-1.0) k/uL Eosinophils # (0-0.7) k/uL Basophils # (0-0.2) k/uL PT 9.9 (9.0-12.0) sec INR 1.0 (<1.2) APTT 23.8 (22.0-30.0) sec Sodium (137-145) mmol/L Potassium (3.5-5.1) mmol/L Chloride (98-107) mmol/L Carbon Dioxide (22-30) mmol/L Anion Gap mmol/L BUN (9-20) mg/dL Creatinine (0.66-1.25) mg/dL Est GFR (CKD-EPI)AfAm (>60 ml/min/1.73 sqM) Est GFR (CKD-EPI)NonAf (>60 ml/min/1.73 sqM) Glucose (74-99) mg/dL Calcium (8.4-10.2) mg/dL Magnesium (1.6-2.3) mg/dL Total Bilirubin (0.2-1.3) mg/dL AST (17-59) U/L ALT (21-72) U/L Alkaline Phosphatase (38-126) U/L Total Creatine Kinase (55-170) U/L CK-MB (CK-2) (0.0-2.4) ng/mL CK-MB (CK-2) Rel Index Troponin I (0.000-0.034) ng/mL Total Protein (6.3-8.2) g/dL Albumin (3.5-5.0) g/dL Disposition Clinical Impression: Chest pain, Dialysis complication Disposition: Left Against Medical Advice Condition: Fair Instructions: Chest Pain (ED) Is patient prescribed a controlled substance at d/c from ED?: No Referrals: Emily Valentin DO [Primary Care Provider] - 1-2 days Time of Disposition: 16:13
--- NOTE | 2018-01-04 14:56 | XR ---
EXAMINATION TYPE: XR chest 2V DATE OF EXAM: 01/04/2018 COMPARISON: 06/21/2016 HISTORY: Chest pain TECHNIQUE: Frontal and lateral views of the chest are obtained. FINDINGS: Heart and mediastinum are normal. Lungs are clear. Diaphragm is normal. There is left axil ramirez pacemaker with the lead tips in the right ventricle. IMPRESSION: Normal chest. There is clearing of the pulmonary congestion compared to old exam.
[2018-01-04 15:02] LABS: Albumin 3.9 g/dL (3.5-5.0); Calcium 7.8 mg/dL (8.4-10.2); Magnesium 1.9 mg/dL (1.6-2.3); Potassium 3.6 mmol/L (3.5-5.1); Total Bilirubin 0.7 mg/dL (0.2-1.3); Total Protein 6.5 g/dL (6.3-8.2)
[2018-01-04 15:08] LABS: Partial Thromboplastin Time 23.8 sec (22.0-30.0); Prothrombin Time 9.9 sec (9.0-12.0)
[2018-01-04 15:09] LABS: Basophils % (A) 0 %; Eosinophils # (A) 0.3 k/uL (0-0.7); Eosinophils % (A) 3 %; HCT 35.7 % (39.0-53.0); HGB 12.3 gm/dL (13.0-17.5); Lymphocytes # (A) 1.5 k/uL (1.0-4.8); Lymphocytes % (A) 15 %; MCH 29.8 pg (25.0-35.0); MCHC 34.5 g/dL (31.0-37.0); MCV 86.4 fL (80.0-100.0); Mean Platelet Volume 6.6; Monocytes # (A) 0.6 k/uL (0-1.0); Monocytes % (A) 6 %; Neutrophils # (A) 7.6 k/uL (1.3-7.7); Neutrophils % (A) 75 %; Platelet Count 279 k/uL (150-450); RBC 4.14 m/uL (4.30-5.90); RDW 12.9 % (11.5-15.5)
[2018-01-04 15:32] LABS: Creatine Kinase MB 1.2 ng/mL (0.0-2.4); Troponin I 0.03 ng/mL (0.000-0.034)
[2018-01-04 16:09] VITALS: BP 209/69; PULSE 78
== END 2018-01-04 16:09 | disposition left against medical advice (07) ==
LOC: EC 14:24
DX: T80.90XA Unspecified complication following infusion and therapeutic injection, initial encounter (principal); R07.89 Other chest pain; R79.89 Other specified abnormal findings of blood chemistry; M54.9 Dorsalgia, unspecified; I25.10 Atherosclerotic heart disease of native coronary artery without angina pectoris; N18.6 End stage renal disease; I13.2 Hypertensive heart and chronic kidney disease with heart failure and with stage 5 chronic kidney disease, or end stage renal disease; I25.2 Old myocardial infarction; F17.200 Nicotine dependence, unspecified, uncomplicated; Z79.02 Long term (current) use of antithrombotics/antiplatelets; Z79.82 Long term (current) use of aspirin; Z79.899 Other long term (current) drug therapy; Z86.73 Personal history of transient ischemic attack (TIA), and cerebral infarction without residual deficits; Z95.0 Presence of cardiac pacemaker; Z95.5 Presence of coronary angioplasty implant and graft; Z84.1 Family history of disorders of kidney and ureter
CPT/HCPCS: 36415; 71046; 80053; 82550; 82553; 83735; 84484; 85025; 85610; 85730; 93005; 99285

== ENCOUNTER 2018-04-01 06:40 | Day surgery (SDC) | payer BC, MEDICARE ==
[2018-03-30 09:26] VITALS: BMI 25.0
[~2018-04-01 06:40] MED LIST changes: +HYDROmorphone 0.5 MG/0.5 ML SYRINGE IVP PRN; -HYDROmorphone 1 MG/ML 1 ML SYRINGE IVP PRN; -LACTATED RINGERS 1,000 ML IV SCH; +LIDOCAINE 1% 20 ML VIAL (10MG/ML) FOR IV START INTRADERMA PRN; -ceFAZolin 2 GM in SODIUM CHLORIDE 0.9% 100 ML IVPB ONE; +ceFAZolin IN SWFI 2 GM/20 ML SYRINGE IVP ONE
--- NOTE | 2018-04-01 06:54 | P.GSHP ---
History of Present Illness H&P Date: 04/01/18 Chief Complaint: Umbilical and inguinal hernia Patient here today for elective repair of a right inguinal hernia and umbilical hernia. Patient seen in the office approximately one month ago for these issues. He is known to our service from previous dialysis catheter placement. Recently had a hemodialysis catheter placed. Denies nausea or vomiting. Past Medical History Past Medical History: Blood Disorder, Coronary Artery Disease (CAD), Heart Failure, CVA/TIA, Diabetes Mellitus, Hyperlipidemia, Hypertension, Myocardial Infarction ([place]), Renal Disease Additional Past Medical History / Comment(s): KIDNEY DISEASE- PERITONEAL DIALYSIS., PT HAS STARTED HEMODIALYSIS FOR HIS HERNIA SURGERY WITH DR. CATALAN AND STATES HE WILL RESUME PERITONEAL DIALYSIS AFTER SURGERY., HX OF ANEMIA & IRON INFUSIONS., CVA 2012, SOME WEAKNESS LT SIDE., MULTIPLE SCLEROSIS, NEUROPATHY IN FEET & HANDS., AICD/PACEMAKER., STATES AICD BATTERY RECALLED AND HE WEARS A MONITOR AT NIGHT FOR THE BATTERY., DIABETIC -DIET CONTROLLED., (PAST HX OF INSULIN )., HX OF [place] X2., Last Myocardial Infarction Date:: 06/2014 History of Any Multi-Drug Resistant Organisms: None Reported Past Surgical History: AICD, Heart Catheterization With Stent, Pacemaker Additional Past Surgical History / Comment(s): Hx Vasectomy. Pacemaker/AICD - [facility]. , HEART CATH X2 WITH STENTS, PATIENT STATES LAST STENT APPROX 1 YEAR AGO., PERITONEAL DIALYSIS CATHETER, HEMODIALYSIS CATHETER. Past Anesthesia/Blood Transfusion Reactions: No Reported Reaction Date of Last Stent Placement:: NOVEMBER 2016 Type of Cardiac Device: Permanent Pacemaker, AICD Device Placement Date:: 06/08/2014 Past Psychological History: Depression Additional Psychological History / Comment(s): STATES PAST HX OF DEPRESSION Smoking Status: Current every day smoker Past Alcohol Use History: None Reported Additional Past Alcohol Use History / Comment(s): SMOKING SINCE17 YEARS OLD, ( 35 YEARS). CURRENTLY SMOKING 2 CIGARETTES/DAY, (HX OF 1/2 PPD) Past Drug Use History: Marijuana Additional Drug Use History / Comment(s): CURRENT MARIJUANA USE. - Past Family History Mother Family Medical History: Cancer, Renal Disease Additional Family Medical History / Comment(s): Mother-stent. BLOOD CLOT IN KIDNEY, "KILLED ONE" Sister(s) Family Medical History: Cancer Son(s) Additional Family Medical History / Comment(s): BORN W/ 1 KIDNEY Medications and Allergies Home Medications Medication Instructions Recorded Confirmed Type Clopidogrel [Plavix] 75 mg PO HS 02/19/15 03/30/18 History Carvedilol [Coreg] 25 mg PO DAILY 02/20/15 03/30/18 History Isosorbide Mononitrate ER [Imdur] 30 mg PO HS 06/21/16 03/30/18 History Aspirin EC [Ecotrin Low Dose] 81 mg PO DAILY 01/04/18 03/30/18 History Calcium Acetate [Phoslo] 667 mg PO TID-W/MEALS 01/04/18 03/30/18 History Hydrocodone/Acetaminophen [[place]runo 1 - 2 tab PO Q4HR PRN 01/04/18 03/30/18 History 5-325] Furosemide [Lasix] 40 mg PO BID 03/30/18 03/30/18 History Allergies Allergy/AdvReac Type Severity Reaction Status Date / Time No Known Allergies Allergy Verified 03/30/18 08:49 Surgical - Exam Physical exam: General: Well-developed, well-nourished HEENT: Normocephalic, sclerae nonicteric Abdomen: Nontender, nondistended reducible umbilical and right inguinal hernias Extremities: No edema Neuro: Alert and oriented Assessment and Plan (1) Right inguinal hernia Narrative/Plan: Will proceed with operative repair at this time. Options previously discussed with the patient. At this time favor laparoscopic right inguinal herniorrhaphy with mesh with open repair umbilical hernia with possible mesh. Risks of bleeding, infection, recurrence, bladder and bowel injury, numbness, nerve injury, conversion to an open procedure were discussed with the patient. The patient understands and wishes to proceed. Current Visit: Yes Status: Acute Code(s): K40.90 - UNIL INGUINAL HERNIA, W/ O OBST OR GANGR, NOT SPCF RECUR SNOMED Code(s): 601963456
[2018-04-01 07:43] LABS: Glucose,Whole Blood 118 mg/dL (75-99)
[2018-04-01] MEDS: LACTATED RINGERS 1,000 ML IV SCH (07:54)
[2018-04-01 07:55] LABS: Potassium 3.5 mmol/L (3.5-5.1)
[2018-04-01 08:08] LABS: Calcium 7.6 mg/dL (8.4-10.2); Total Bilirubin 0.8 mg/dL (0.2-1.3); Total Protein 7.3 g/dL (6.3-8.2)
[2018-04-01] MEDS ORDERED: ROPIVACAINE 5 MG/ML 30 ML VIAL ONE (09:30)
[2018-04-01] MEDS ORDERED: fentaNYL (PF) 50 MCG/ML 2 ML AMP ONE (09:30)
[2018-04-01] MEDS ORDERED: ROCURONIUM BROMIDE 10 MG/ML 10 ML VIAL IV ONE (09:30)
[2018-04-01] MEDS ORDERED: MIDAZOLAM 2 MG/2 ML VIAL ONE (09:30)
[2018-04-01] MEDS ORDERED: PROPOFOL 10 MG/ML 20 ML VIAL IV ONE (09:30)
[2018-04-01] MEDS ORDERED: SUCCINYLCHOLINE CHLORIDE 100 MG/5 ML SYR IV ONE (09:30)
[2018-04-01] MEDS ORDERED: BUPIVACAIN-EPI 0.25%-1:200,000 30 ML VIAL SQ ONE ×2 (10:03)
--- NOTE | 2018-04-01 10:06 | P.ONQ ---
Anesthesiology Proc Note - PNB - Peripheral Nerve Block Performed Bilateral Transversus Abdominis Single Procedure Start Time: 08:58 Procedure Stop Time: 09:10 Indication: Acute Post-Operative Pain, Analgesia, Requested by physician Sedation Type: Sedate with meaningful contact maintained Preparation: Sterile Prep Position: Supine Catheter: None Needle Types: Touhy, Other (see comment) Needle Size: 100mm (4"), 150mm (6") Needle Gauge: 21 Injectate: 0.5% Ropivacaine (see comment for volume) Blood Aspirated: No Pain Paresthesia on Injection Noted: No Resistance on Injection: Normal Events: Uneventful and Well Tolerated (20 ml ropi)
[2018-04-01] MEDS ORDERED: HYDROcodone/APAP 5-325MG 1 EACH TAB PO PRN (10:54)
[2018-04-01] MEDS ORDERED: NALOXONE 0.4 MG/ML 1 ML VIAL IV PRN (10:54)
--- NOTE | 2018-04-01 10:57 | P.OP ---
Date of Procedure: 04/01/18 Procedure(s) Performed: PREOPERATIVE DIAGNOSIS: Right inguinal hernia, umbilical hernia POSTOPERATIVE DIAGNOSIS: Same PROCEDURE: Laparoscopic repair right inguinal hernia with the da Jerrica robot assistance with mesh, open repair umbilical hernia SURGEON: Alanis EBL: Minimal ANESTHESIA: General COMPLICATIONS: None OPERATIVE PROCEDURE: Patient was placed in the operating table in the supine position. The patient was placed under general anesthesia. The patient was then placed in lithotomy. The abdomen was prepped and draped in usual sterile fashion. A small curvilinear supraumbilical incision was made. The patient's hernia sac was dissected. This was thickened in nature. This was excised at the fascial opening. The fascial opening itself only measured about 7 mm in diameter. The 5 mm trocar was advanced through this under direct visualization. Full insufflation took place. This was later switched to a 12 mm trocar. 2 additional 8 mm trochars were placed in the right upper quadrant and left upper quadrant under visualization. The robotic arms were then brought in and docked into place. The fenestrated bipolar was used in the left arm and the laparoscopic lavern was utilized in the right arm. A 30 12 mm scope was used in the up position. The peritoneal cavity was inspected. The patient had a small indirect right inguinal hernia and no visible left inguinal hernia. The peritoneum was incised in a horizontal fashion cephalad to the internal inguinal ring. Following that careful dissection of the preperitoneal space took place. This took place using both electrocautery, sharp dissection but primarily blunt dissection. Visualization of the pubic tubercle and Rey' s ligament took place medially. Full dissection took place laterally as well. The hernia sac was fully dissected. Once we had adequate space the 16 x 10 progrip mesh was advanced into the preperitoneal space and flattened out appropriately to cover all potential hernia sites. No sutures were used. The peritoneal defect was then closed using a locking 2-0 VLok suture. The pneumoperitoneum was then evacuated. The fascia at the umbilical hernia site was closed using 2 separate [id number] #1 Nurolon sutures. The skin of all 3 sites was closed using a 4-0 Monocryl stitch. Skin glue was then applied. DISPOSITION: Stable to recovery room
[2018-04-01 11:21] VITALS: TEMP 98
[2018-04-01 11:56] LABS: Glucose,Whole Blood 144 mg/dL (75-99)
[2018-04-01 12:02] VITALS: RESP 18
[2018-04-01] MEDS ORDERED: MORPHINE SULFATE 4 MG/ML SYRINGE IVP ONE (13:00)
[2018-04-01 13:13] VITALS: BP 159/84; PULSE 72
== END 2018-04-01 14:25 | disposition home or self-care (01) ==
LOC: OR 06:40
PROVIDERS: ATTEND Surgery
DX: K40.90 Unilateral inguinal hernia, without obstruction or gangrene, not specified as recurrent (principal); K42.9 Umbilical hernia without obstruction or gangrene; K21.9 Gastro-esophageal reflux disease without esophagitis; I25.10 Atherosclerotic heart disease of native coronary artery without angina pectoris; E11.22 Type 2 diabetes mellitus with diabetic chronic kidney disease; E11.42 Type 2 diabetes mellitus with diabetic polyneuropathy; I13.2 Hypertensive heart and chronic kidney disease with heart failure and with stage 5 chronic kidney disease, or end stage renal disease; N18.6 End stage renal disease; Z99.2 Dependence on renal dialysis; I50.9 Heart failure, unspecified; F17.210 Nicotine dependence, cigarettes, uncomplicated; E78.5 Hyperlipidemia, unspecified; I25.2 Old myocardial infarction; G35 Multiple sclerosis; I69.359 Hemiplegia and hemiparesis following cerebral infarction affecting unspecified side; Z95.810 Presence of automatic (implantable) cardiac defibrillator; Z79.02 Long term (current) use of antithrombotics/antiplatelets; Z79.82 Long term (current) use of aspirin; Z79.891 Long term (current) use of opiate analgesic; Z79.899 Other long term (current) drug therapy
CPT/HCPCS: 49650; 49585; 64486; 80053; 88302; C1781; J2250; J2270; J1644; J1100; J2405; J3010; J2795; J0330; J2704; J0690

== ENCOUNTER 2020-05-24 01:52 | Inpatient (IN) | payer MEDICARE, BC ==
--- NOTE | 2020-05-24 02:03 | ED ---
Chest Pain HPI - General Stated Complaint: cardiac issue Time Seen by Provider: 05/24/20 01:55 Source: patient Mode of arrival: EMS - History of Present Illness Initial Comments: This patient is 54-year-old man presenting to be evaluated for a feeling of chest pressure that had come on earlier and he states is identical to the symptoms he was expressing with previous IA. He states that he had heart attack probably about 5 years ago. He was treated at another facility. He follows with an outside road traffic controller. The patient does admit to being medically noncompliant, as well as not consistently changing his peritoneal dialysis per schedule. MD Complaint: chest pain Onset/Timin -: hour(s) Onset: during rest Pain Location: substernal Pain Radiation: none Quality: other (Pressure) Consistency: constant Improves With: nothing Worsens With: nothing - Related Data Home Medications Medication Instructions Recorded Confirmed Clopidogrel [Plavix] 75 mg PO DAILY 02/19/15 05/24/20 Aspirin EC [Ecotrin Low Dose] 81 mg PO DAILY 01/04/18 05/24/20 Hydrocodone/Acetaminophen [[place] 1 tab PO DAILY PRN 01/04/18 05/24/20 5-325] Furosemide [Lasix] 80 mg PO DAILY PRN 05/24/20 05/24/20 Sevelamer Carbonate 2.4 gm PO PC-TID 05/24/20 05/24/20 carvediloL [Coreg] 3.125 mg PO BID 05/24/20 05/24/20 Allergies Allergy/AdvReac Type Severity Reaction Status Date / Time No Known Allergies Allergy Verified 05/24/20 07:10 Review of Systems ROS Statement: Those systems with pertinent positive or pertinent negative responses have been documented in the HPI. ROS Other: All systems not noted in ROS Statement are negative. EKG Findings - EKG Comments: EKG Findings:: The ECG shows a rate of 90 beats per minutes, with ventricular pacer spikes. - Blocks, [place], Hypertrophy, ST Abn: AV and intraventricular conduction: right bundle branch block (fixed/intermittent, complete/incomplete) Past Medical History Past Medical History: Blood Disorder, Coronary Artery Disease (CAD), Heart Failure, CVA/TIA, Diabetes Mellitus, Hyperlipidemia, Hypertension, Myocardial Infarction ([place]), Renal Disease Additional Past Medical History / Comment(s): KIDNEY DISEASE- PERITONEAL DIALYSIS., PT HAS STARTED HEMODIALYSIS FOR HIS HERNIA SURGERY WITH DR. CATALAN AND STATES HE WILL RESUME PERITONEAL DIALYSIS AFTER SURGERY., HX OF ANEMIA & IRON INFUSIONS., CVA 2012, SOME WEAKNESS LT SIDE., MULTIPLE SCLEROSIS, NEUROPATHY IN FEET & HANDS., AICD/PACEMAKER., STATES AICD BATTERY RECALLED AND HE WEARS A MONITOR AT NIGHT FOR THE BATTERY., DIABETIC -DIET CONTROLLED., (PAST HX OF INSULIN )., HX OF [place] X2., Last Myocardial Infarction Date:: 06/2014 History of Any Multi-Drug Resistant Organisms: None Reported Past Surgical History: AICD, Heart Catheterization With Stent, Pacemaker Additional Past Surgical History / Comment(s): Hx Vasectomy. Pacemaker/AICD 06/08/[address] [facility]. , HEART CATH X2 WITH STENTS, PATIENT STATES LAST STENT APPROX 1 YEAR AGO., PERITONEAL DIALYSIS CATHETER, HEMODIALYSIS CATHETER. Past Anesthesia/Blood Transfusion Reactions: No Reported Reaction Date of Last Stent Placement:: NOVEMBER 2016 Type of Cardiac Device: Permanent Pacemaker, AICD Device Placement Date:: 06/08/2014 Past Psychological History: Depression Smoking Status: Former smoker Past Alcohol Use History: None Reported Past Drug Use History: Marijuana - Past Family History Mother Family Medical History: Cancer, Renal Disease Additional Family Medical History / Comment(s): Mother-stent. BLOOD CLOT IN KIDNEY, "KILLED ONE" Sister(s) Family Medical History: Cancer Son(s) Additional Family Medical History / Comment(s): BORN W/ 1 KIDNEY General Exam General appearance: alert, in no apparent distress Head exam: Present: atraumatic, normocephalic. Absent: normal inspection Eye exam: Present: normal appearance Respiratory exam: Present: normal lung sounds bilaterally. Absent: respiratory distress, wheezes, rales, rhonchi, stridor, accessory muscle use, decreased breath sounds, prolonged expiratory Cardiovascular Exam: Present: regular rate, normal rhythm, systolic murmur (4/6 systolic ejection murmur). Absent: diastolic murmur, rubs, gallop GI/Abdominal exam: Present: soft, other (Peritoneal dialysis catheter in place, normal in appearance). Absent: distended, tenderness, guarding, rebound, rigid, mass Extremities exam: Present: normal inspection, normal capillary refill. Absent: pedal edema, calf tenderness Back exam: Present: normal inspection. Absent: CVA tenderness (R), CVA tenderness (L) Neurological exam: Present: alert Skin exam: Present: warm, dry, intact, normal color, other (Healing eschar left third toe.). Absent: rash Course Vital Signs 05/24/20 05/24/20 05/24/20 02:01 02:04 03:00 Temperature 97.4 F L Pulse Rate 71 80 Pulse Rate [ 71 Behavior Specialist ] Respiratory 22 12 Rate Blood Pressure 102/50 138/50 Blood Pressure [Right Arm Supine] O2 Sat by Pulse 95 Oximetry 05/24/20 05/24/20 04:02 04:30 Temperature 98.3 F 97.6 F Pulse Rate 82 Pulse Rate [ 73 Behavior Specialist ] Respiratory 18 18 Rate Blood Pressure 114/47 Blood Pressure 98/44 [Right Arm Supine] O2 Sat by Pulse 98 94 L Oximetry Chest Pain MDM - [facility] Patient's 54-year-old man presenting with chest pain concerning for NSTEMI. Case is discussed with Dr. John and history recommendations are incorporated. The patient's symptoms markedly improved and now he does have periods where he states the symptoms had resolved and he was able to sleep. Critical Care Time Critical Care Time: Yes (40 minutes) Disposition Clinical Impression: Acute non-ST elevation myocardial infarction (NSTEMI), Chronic renal failure Disposition: ADMITTED IP TO THIS HOSP Condition: Serious
[2020-05-24 02:07] LABS: Glucose,Whole Blood 131 mg/dL (75-99)
[2020-05-24] MEDS ORDERED: HYDROmorphone 0.5 MG/0.5 ML SYRINGE IVP STA (02:12)
[2020-05-24 02:29] LABS: Basophils # (A) 0.1 k/uL (0-0.2); Basophils % (A) 1 %; Eosinophils # (A) 0.2 k/uL (0-0.7); Eosinophils % (A) 2 %; HCT 45.6 % (39.0-53.0); HGB 15.2 gm/dL (13.0-17.5); Lymphocytes % (A) 13 %; MCH 29.7 pg (25.0-35.0); MCHC 33.3 g/dL (31.0-37.0); Mean Platelet Volume 6.6; Monocytes # (A) 0.4 k/uL (0-1.0); Monocytes % (A) 6 %; Neutrophils % (A) 78 %; Platelet Count 270 k/uL (150-450); RBC 5.12 m/uL (4.30-5.90); RDW 14.2 % (11.5-15.5); WBC 7.7 k/uL (3.8-10.6)
[2020-05-24 02:38] LABS: Calcium 6.9 mg/dL (8.4-10.2); Magnesium 1.6 mg/dL (1.6-2.3); Potassium 4.2 mmol/L (3.5-5.1); Total Bilirubin 1.2 mg/dL (0.2-1.3); Total Protein 6.1 g/dL (6.3-8.2)
[2020-05-24 02:44] LABS: INR 1.1 (<1.2); Partial Thromboplastin Time 24.2 sec (22.0-30.0); Prothrombin Time 11.1 sec (9.0-12.0)
--- NOTE | 2020-05-24 02:48 | XR ---
EXAM: XR Chest, 1 View CLINICAL HISTORY: ITS.REASON XR Reason: chest pain TECHNIQUE: Frontal view of the chest. COMPARISON: CXR 01/04/18 FINDINGS: Lungs: Increased prominence of the interstitial lung markings. No airspace consolidation. Pleural space: No significant pleural effusion. No pneumothorax. Heart: Cardiomegaly and mild central vascular congestion. Mediastinum: Unremarkable. Bones/joints: Unremarkable. Tubes, lines and devices: Stable left chest wall multilead AICD and pacemaker. IMPRESSION: 1. Cardiomegaly, central vascular congestion. 2. Interstitial prominence suggesting mild interstitial edema.
[2020-05-24] MEDS ORDERED: HEPARIN SODIUM,PORCINE 5,000 UNIT/ML 1 ML VIAL IV ONE (02:53)
[2020-05-24] MEDS ORDERED: HEPARIN SODIUM,PORCINE 5,000 UNIT/ML 1 ML VIAL IV PRN (02:53)
[2020-05-24] MEDS ORDERED: NITROGLYCERIN OINT 1 INCH/GM PACKET TOPICAL STA (02:55)
[2020-05-24] MEDS ORDERED: METOPROLOL TARTRATE 25 MG TAB PO STA (02:57)
[2020-05-24] MEDS ORDERED: HEPARIN SOD,PORK IN 0.45% NACL 25,000 UNIT in 0.45% NACL 1 250ML.BAG IV SCH (03:00)
[2020-05-24] MEDS ORDERED: NITROGLYCERIN SL TABS 0.4 MG TAB SUBLINGUAL PRN (03:28)
[2020-05-24 08:29] VITALS: RESP 16
[2020-05-24] MEDS ORDERED: CLOPIDOGREL 75 MG TAB PO SCH (09:30)
[2020-05-24] MEDS ORDERED: carvediloL 3.125 MG TAB PO SCH (09:30)
[2020-05-24] MEDS ORDERED: ASPIRIN 81 MG PO SCH (09:30)
--- NOTE | 2020-05-24 10:31 | P.CRDCN ---
History of Present Illness History of present illness: HISTORY OF PRESENTING ILLNESS This is a pleasant 54-year-old male past medical history significant for. Very disease status post multiple PCI's, ischemic cardiomyopathy status post AICD, chronic systolic heart failure, chronic end-stage renal disease on peritoneal dialysis, hypertension, diabetes mellitus and dyslipidemia. He follows in the office with Dr. Lei. We have been asked to see in consultation for elevated troponin. He states last night he woke up with a discomfort in his chest in the left precordial region. He states it felt heavy and tight. He is on peritoneal dialysis but states he doesn't follow a regular schedule. He did not do dialysis yesterday as he should have. He is seen and examined laying flat in bed in no acute distress. He denies active chest pain, shortness of breath, dizziness or palpitations. DIAGNOSTICS EKG reveals sinus mechanism, right bundle branch block evidence of inferior wall [place] and poor R-wave progression with ventricular pacing. Telemetry tracings indicate sinus mechanism. Chest xray cardiomegaly with central vascular congestion and mild interstitial edema. Laboratory reviewed, BC unremarkable, sodium 134, potassium 4.2, creatinine 8.5, magnesium 1.6, troponin 0.414, 0.295 and 0.297, NT proBNP 146,000. Current cardiac medications include aspirin 81 mg daily, Plavix 75 mg daily and Coreg 3.125 mg twice a day. Recent echocardiogram in 2017 reveals impaired LV systolic function with ejection fraction less than 20%, mild MR, moderate TR and severe pulmonary hypertension with RVSP of 60 mmHg. REVIEW OF SYSTEMS At the time of my exam: CONSTITUTIONAL: Denies fever or chills. CARDIOVASCULAR: Denies chest pain, shortness of breath, orthopnea, PND or palpitations. RESPIRATORY: Denies cough. GASTROINTESTINAL: Denies abdominal pain, diarrhea, constipation, nausea or vomiting. MUSCULOSKELETAL: Denies myalgias. NEUROLOGIC: Denies numbness, tingling or weakness. ENDOCRINE: Denies fatigue, weight change, polydipsia or polyurina. GENITOURINARY: Denies burning, hematuria or urgency with micturation. HEMATOLOGIC: Denies history of anemia or bleeding. PHYSICAL EXAMINATION Blood pressure 93/43 heart rate 66 afebrile and maintaining oxygen saturation on nasal cannula. CONSTITUTIONAL: No apparent distress. HEENT: Head is normocephalic. Pupils are equal, round. Sclerae anicteric. Mucous membranes of the mouth are moist. No JVD. No carotid bruit. CHEST EXAMINATION: Lungs are clear to auscultation. No chest wall tenderness is noted on palpation or with deep breathing. HEART EXAMINATION: Regular rate and rhythm. S1, S2 heard. No murmurs, gallops or rub. ABDOMEN: Soft, nontender. Positive bowel sounds. EXTREMITIES: 2+ peripheral pulses, no lower extremity edema and no calf tenderness. NEUROLOGIC EXAMINATION: Patient is awake, alert and oriented x3. ASSESSMENT Chest pain, atypical for angina Troponin elevation secondary to renal function not suggestive of ACS with a typical rise and fall pattern Fluid overload secondary to missed peritoneal dialysis Hypertension Dyslipidemia Coronary artery disease status post PCI maintained on dual antiplatelet therapy Chronic systolic heart failure Ischemic cardiomyopathy status post AICD PLAN Troponin elevation secondary to renal function not suggestive of acute coronary syndrome. Discontinue heparin infusion. Nephrology is following, recommend dialysis. No further cardiac workup needed at this time, follow-up with primary director of community center upon discharge. Dialysis compliance recommended. Thank you kindly for this consultation. Nurse Practitioner note has been reviewed, I agree with a documented findings and plan of care. Patient was seen and examined. Past Medical History Past Medical History: Blood Disorder, Coronary Artery Disease (CAD), Heart Failure, CVA/TIA, Diabetes Mellitus, Hyperlipidemia, Hypertension, Myocardial Infarction ([place]), Renal Disease Additional Past Medical History / Comment(s): KIDNEY DISEASE- PERITONEAL DIALYSIS., PT HAS STARTED HEMODIALYSIS FOR HIS HERNIA SURGERY WITH DR. CATALAN AND STATES HE WILL RESUME PERITONEAL DIALYSIS AFTER SURGERY., HX OF ANEMIA & IRON INFUSIONS., CVA 2012, SOME WEAKNESS LT SIDE., MULTIPLE SCLEROSIS, NEUROPATHY IN FEET & HANDS., AICD/PACEMAKER., STATES AICD BATTERY RECALLED AND HE WEARS A MONITOR AT NIGHT FOR THE BATTERY., DIABETIC -DIET CONTROLLED., (PAST HX OF INSULIN )., HX OF [place] X2., Last Myocardial Infarction Date:: 06/2014 History of Any Multi-Drug Resistant Organisms: None Reported Past Surgical History: AICD, Heart Catheterization With Stent, Pacemaker Additional Past Surgical History / Comment(s): Hx Vasectomy. Pacemaker/AICD 06/08/[address] [facility]. , HEART CATH X2 WITH STENTS, PATIENT STATES LAST STENT APPROX 1 YEAR AGO., PERITONEAL DIALYSIS CATHETER, HEMODIALYSIS CATHETER. Past Anesthesia/Blood Transfusion Reactions: No Reported Reaction Date of Last Stent Placement:: NOVEMBER 2016 Type of Cardiac Device: Permanent Pacemaker, AICD Device Placement Date:: 06/08/2014 Past Psychological History: Depression Smoking Status: Former smoker Past Alcohol Use History: None Reported Past Drug Use History: Marijuana - Past Family History Mother Family Medical History: Cancer, Renal Disease Additional Family Medical History / Comment(s): Mother-stent. BLOOD CLOT IN KIDNEY, "KILLED ONE" Sister(s) Family Medical History: Cancer Son(s) Additional Family Medical History / Comment(s): BORN W/ 1 KIDNEY Medications and Allergies Home Medications Medication Instructions Recorded Confirmed Type Clopidogrel [Plavix] 75 mg PO DAILY 02/19/15 05/24/20 History Aspirin EC [Ecotrin Low Dose] 81 mg PO DAILY 01/04/18 05/24/20 History Hydrocodone/Acetaminophen [[place] 1 tab PO DAILY PRN 01/04/18 05/24/20 History 5-325] Furosemide [Lasix] 80 mg PO DAILY PRN 05/24/20 05/24/20 History Sevelamer Carbonate 2.4 gm PO PC-TID 05/24/20 05/24/20 History carvediloL [Coreg] 3.125 mg PO BID 05/24/20 05/24/20 History Allergies Allergy/AdvReac Type Severity Reaction Status Date / Time No Known Allergies Allergy Verified 05/24/20 07:10 Physical Exam Vitals: Vital Signs Temp Pulse Pulse Resp BP BP Pulse Ox 05/24/20 08:00 96.4 F L 66 16 93/43 100 05/24/20 05:47 98.3 F 73 18 98/44 98 05/24/20 04:30 97.6 F 82 18 114/47 94 L 05/24/20 04:02 98.3 F 73 18 98/44 98 05/24/20 03:00 80 12 138/50 95 05/24/20 02:04 97.4 F L 71 22 102/50 05/24/20 02:01 71 Intake and Output 05/23/20 05/24/20 05/24/20 22:59 06:59 14:59 Output Total 0 Balance 0 Output: Urine 0 Other: # Voids 0 Weight 71.5 kg Results 05/24/20 02:14 05/24/20 02:14 Cardiac Enzymes 05/24/20 05/24/2020 Range/Units 02:14 02:14 05:15 AST 13 L (17-59) U/L Troponin I 0.414 H* 0.295 H* (0.000-0.034) ng/mL 05/24/20 Range/Units 08:28 AST (17-59) U/L Troponin I 0.297 H* (0.000-0.034) ng/mL Coagulation 05/24/20 05/24/20 Range/Units 02:14 08:28 PT 11.1 (9.0-12.0) sec APTT 24.2 32.9 H (22.0-30.0) sec CBC 05/24/20 Range/Units 02:14 WBC 7.7 (3.8-10.6) k/uL RBC 5.12 (4.30-5.90) m/uL Hgb 15.2 (13.0-17.5) gm/dL Hct 45.6 (39.0-53.0) % Plt Count 270 (150-450) k/uL Comprehensive Metabolic Panel 05/24/20 Range/Units 02:14 Sodium 134 L (137-145) mmol/L Potassium 4.2 (3.5-5.1) mmol/L Chloride 96 L (98-107) mmol/L Carbon Dioxide 30 (22-30) mmol/L BUN 53 H (9-20) mg/dL Creatinine 8.50 H* (0.66-1.25) mg/dL Glucose 141 H (74-99) mg/dL Calcium 6.9 L (8.4-10.2) mg/dL AST 13 L (17-59) U/L ALT 7 (4-49) U/L Alkaline Phosphatase 134 H (38-126) U/L Total Protein 6.1 L (6.3-8.2) g/dL Albumin 3.0 L (3.5-5.0) g/dL Current Medications Generic Name Dose Route Start Last Admin Trade Name Freq PRN Reason Stop Dose Admin Aspirin 81 mg 05/24/20 09:30 Aspirin 81 Mg PO DAILY [facility] Carvedilol 3.125 mg 05/24/20 09:30 Carvedilol 3.125 Mg Tab PO BID [facility] Clopidogrel Bisulfate 75 mg 05/24/20 09:30 Clopidogrel 75 Mg Tab PO DAILY [facility] Heparin Sodium (Porcine) 0 unit 05/24/20 02:53 Heparin Sodium,Porcine 5,000 Unit/Ml 1 Ml Vial IV PER PROTOCOL PRN Low PTT Protocol Peritoneal Dialysis Solution 37.5 g in 2,500 mls @ 0 mls/hr 05/24/20 12:00 Delflex With 1.5% Dextrose (2,500 Ml) INTRAPERIT Q6HR [facility] Protocol As Directed Nitroglycerin 0.4 mg 05/24/20 03:28 Nitroglycerin Sl Tabs 0.4 Mg Tab SUBLINGUAL Q5M PRN Chest Pain Intake and Output 05/23/20 05/24/20 05/24/20 22:59 06:59 14:59 Output Total 0 Balance 0 Output: Urine 0 Other: # Voids 0 Weight 71.5 kg 05/24/20 02:14 05/24/20 02:14
[2020-05-24] MEDS ORDERED: HYDROcodone/APAP 5-325MG 1 EACH TAB PO PRN (11:01)
[2020-05-24] MEDS: SEVELAMER 800 MG TAB PO SCH ×2 (12:18→15:23)
[2020-05-24] MEDS: DIALYSIS (PERIT 1.5%) 2,500 ML 37.5 G/2,500 ML BAG INTRAPERIT SCH ×2 (12:18→14:02)
--- NOTE | 2020-05-24 16:57 | CONS ---
CONSULTATION REASON FOR CONSULT: End-stage renal disease. HISTORY OF PRESENT ILLNESS: Patient is a 54-year-old male with end-stage renal disease, on peritoneal dialysis. Patient was admitted to the hospital with complaints of chest pressure and discomfort. He had some shortness of breath as well. The patient does have a history of significant coronary artery disease and follows with Dr. Lei as outpatient. He states that his chest discomfort has improved currently, and at this point there do not appear to be any plans for cardiac catheterization. No history of fever, chills, nausea, vomiting or abdominal pain. The patient did admit to having skipped a few treatments on his peritoneal dialysis regimen. PAST MEDICAL HISTORY: End-stage renal disease, anemia of chronic disease, hypertension, coronary artery disease, history of ischemic cardiomyopathy, CHF, mostly systolic, multiple sclerosis, neuropathy. PAST SURGICAL HISTORY: Cardiac catheterization, PD catheter placement, coronary stent placement, pacemaker placement, vasectomy, hemodialysis catheter placement and removal. SOCIAL HISTORY: Patient is a former smoker. No history of drug abuse. No history of alcohol abuse. He does have history of use of marijuana. REVIEW OF SYSTEMS: As per HPI. MEDICATIONS: Medications prior to admission included Plavix, aspirin, Lasix, Renvel[place], Coreg and [place]. ALLERGIES: NONE. PHYSICAL EXAMINATION: Patient is comfortable, awake, alert, oriented x3, not in any acute distress. Blood pressure 96/48, heart rate 72 per minute. He is afebrile. EXAMINATION OF THE HEART: S1 and S2. EXAMINATION OF LUNGS: Bilateral breath sounds are heard. ABDOMEN: Soft, non-tender. Examination of lower extremities shows no significant edema. Chronic skin changes noted. BAND SPLITTER exam is grossly intact. LABS: Labs show sodium 134, potassium 4.2, chloride 96, serum creatinine 8.5, hemoglobin 15.2. Troponin was 0.29. ASSESSMENT: 1. End-stage renal disease, on peritoneal dialysis. The patient uses a cycler at home. We will maintain him on manual exchanges. I will start off with 1.5% solution q.6 hours. However, patient does have trace edema, and since his blood pressure is low we will keep at 1.5% solutions for now. 2. Coronary artery disease with elevated troponin, not suggestive of an acute coronary syndrome. 3. History of congestive heart failure, systolic, and ischemic cardiomyopathy. 4. 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 5. Chronic hypotension. I am not sure if this has been worked up. Check cortisol with patient as inpatient and then add midodrine if needed to help with ultrafiltration. PLAN: Maintain patient on 1.5% solution for dialysis q.6 hours. Check cortisol level. Add midodrine and increase ultrafiltration depending on volume status by tomorrow or as outpatient. MMODL / IJN: [id number] /
[2020-05-24] MEDS ORDERED: MIDODRINE 5 MG TAB PO SCH (17:30)
[2020-05-24 18:18] VITALS: BP 107/46; PULSE 69; TEMP 96
--- NOTE | 2020-05-24 23:31 | P.HPIM ---
History of Present Illness H&P Date: 05/24/20 Chief Complaint: Chest pressure History of presenting complaint: This is a 54-year-old patient of . Chronic stable medical conditions include coronary artery disease with stent, diabetes, hypertension, hyperlipidemia, end-stage kidney dialysis on peritoneal dialysis for 4 years some left-sided weakness from prior stroke, MS, peripheral neuropathy, AICD pacemaker last coronary stent was about a year ago. Patient woke up with significant nausea and developed chest pressure that lasted for good 2 hours going across. Was dizzy lightheaded broke out into a sweat. No abdominal pain. No fever no chills. He said this felt like his previous cardiac event. [place] ent is pending a kidney and a heart transplant is on the list. Does not make much urine. No fever no chills. Review of systems: GEN.: Tired EYES: None HEENT: None NECK: None RESPIRATORY: None CARDIOVASCULAR: As above GASTROINTESTINAL: None GENITOURINARY: None MUSCULOSKELETAL: None LYMPHATICS: None HEMATOLOGICAL: None PSYCHIATRY: None NEUROLOGICAL: Peripheral neuropathy Past medical history to include: Coronary artery disease with stent 1 year ago, CHF, diabetes mellitus type 2, hypertension, hyperlipidemia, end-stage kidney disease on peritoneal dialysis, stroke in 2030 with some left-sided weakness, MS, peripheral neuropathy, AICD pacemaker, Social history: Lives dispensed. Stop smoking year ago. Physical examination: VITAL SIGNS: 97.4, 71, 22, 102/50, 95% on 4 L-upon presentation GENERAL: BMI 25.4, laying in bed, not in distress. EYES: Pupils equal. Conjunctiva normal. HEENT: External appearance of nose and ears normal, oral cavity grossly normal. NECK: JVD not raised; masses not palpable. HEART: First and second heart sounds are normal; minimal edema. LUNGS: Respiratory rate normal; decreased breath sounds. ABDOMEN: Soft, nontender, liver spleen not palpable, no masses palpable. PSYCH: Alert and oriented x3; mood and affect normal. NEUROLOGICAL: Cranial nerves grossly intact; no facial asymmetry, power and sensation grossly intact. LYMPHATICS: No lymph nodes palpable in the axilla and neck INVESTIGATIONS, reviewed in the clinical context: White count 7.7 hemoglobin 15.2 platelets 270 potassium 4.2 bun 53 creatinine 8.50 Troponin 0.414, 0.295, 0.297 EKG tracing personally reviewed by me-normal sinus rhythm paced rhythm Chest x-ray film personally reviewed by me-cardiomegaly and some venous prominence Assessment: -Possible unstable angina in a patient with known coronary artery disease -Coronary artery disease with prior history of stent about a year ago -Diabetic mellitus type II -Hyperlipidemia -Essential hypertension -End-stage kidney disease on peritoneal dialysis. Patient is on list for kidney and heart transplant -Chronic multiple sclerosis -Diabetic peripheral neuropathy -AICD with pacemaker Plan: Cardiology was consulted. Home medications resumed. Nephrology was consulted. Patient is feeling better. Past Medical History Past Medical History: Blood Disorder, Coronary Artery Disease (CAD), Heart Failure, CVA/TIA, Diabetes Mellitus, Hyperlipidemia, Hypertension, Myocardial Infarction ([place]), Renal Disease Additional Past Medical History / Comment(s): KIDNEY DISEASE- PERITONEAL DIALYSIS., PT HAS STARTED HEMODIALYSIS FOR HIS HERNIA SURGERY WITH DR. CATALAN AND STATES HE WILL RESUME PERITONEAL DIALYSIS AFTER SURGERY., HX OF ANEMIA & IRON INFUSIONS., CVA 2012, SOME WEAKNESS LT SIDE., MULTIPLE SCLEROSIS, NEUROPATHY IN FEET & HANDS., AICD/PACEMAKER., STATES AICD BATTERY RECALLED AND HE WEARS A MONITOR AT NIGHT FOR THE BATTERY., DIABETIC -DIET CONTROLLED., (PAST HX OF INSULIN )., HX OF [place] X2., Last Myocardial Infarction Date:: 06/2014 History of Any Multi-Drug Resistant Organisms: None Reported Past Surgical History: AICD, Heart Catheterization With Stent, Pacemaker Additional Past Surgical History / Comment(s): Hx Vasectomy. Pacemaker/AICD 06/08/[address] [facility]. , HEART CATH X2 WITH STENTS, PATIENT STATES LAST STENT APPROX 1 YEAR AGO., PERITONEAL DIALYSIS CATHETER, HEMODIALYSIS CATHETER. Past Anesthesia/Blood Transfusion Reactions: No Reported Reaction Date of Last Stent Placement:: NOVEMBER 2016 Type of Cardiac Device: Permanent Pacemaker, AICD Device Placement Date:: 06/08/2014 Past Psychological History: Depression Smoking Status: Former smoker Past Alcohol Use History: None Reported Past Drug Use History: Marijuana - Past Family History Mother Family Medical History: Cancer, Renal Disease Additional Family Medical History / Comment(s): Mother-stent. BLOOD CLOT IN KIDNEY, "KILLED ONE" Sister(s) Family Medical History: Cancer Son(s) Additional Family Medical History / Comment(s): BORN W/ 1 KIDNEY Medications and Allergies Home Medications Medication Instructions Recorded Confirmed Type Clopidogrel [Plavix] 75 mg PO DAILY 02/19/15 05/24/20 History Aspirin EC [Ecotrin Low Dose] 81 mg PO DAILY 01/04/18 05/24/20 History Hydrocodone/Acetaminophen [[place] 1 tab PO DAILY PRN 01/04/18 05/24/20 History 5-325] Furosemide [Lasix] 80 mg PO DAILY PRN 05/24/20 05/24/20 History Midodrine [ProAmatine] 5 mg PO AC-BID #60 tab 05/24/20 Rx Sevelamer Carbonate 2.4 gm PO PC-TID 05/24/20 05/24/20 History carvediloL [Coreg] 3.125 mg PO BID 05/24/20 05/24/20 History Allergies Allergy/AdvReac Type Severity Reaction Status Date / Time No Known Allergies Allergy Verified 05/24/20 07:10 Physical Exam Vitals: Vital Signs Temp Pulse Pulse Resp BP BP Pulse Ox 05/24/20 08:00 96.4 F L 66 16 93/43 100 05/24/20 05:47 98.3 F 73 18 98/44 98 05/24/20 04:30 97.6 F 82 18 114/47 94 L 05/24/20 04:02 98.3 F 73 18 98/44 98 05/24/20 03:00 80 12 138/50 95 05/24/20 02:04 97.4 F L 71 22 102/50 05/24/20 02:01 71 Intake and Output 05/23/20 05/24/20 05/24/20 22:59 06:59 14:59 Output Total 0 Balance 0 Output: Urine 0 Other: # Voids 0 Weight 71.5 kg Results CBC & Chem 7: 05/24/20 02:14 05/24/20 02:14 Labs: Abnormal Lab Results - Last 24 Hours (Table) 05/24/20 05/24/20 05/24/20 Range/Units 02:05 02:14 02:14 APTT (22.0-30.0) sec Sodium 134 L (137-145) mmol/L Chloride 96 L (98-107) mmol/L BUN 53 H (9-20) mg/dL Creatinine 8.50 H* (0.66-1.25) mg/dL Glucose 141 H (74-99) mg/dL POC Glucose (mg/dL) 131 H (75-99) mg/dL Calcium 6.9 L (8.4-10.2) mg/dL AST 13 L (17-59) U/L Alkaline Phosphatase 134 H (38-126) U/L Troponin I 0.414 H* (0.000-0.034) ng/mL Total Protein 6.1 L (6.3-8.2) g/dL Albumin 3.0 L (3.5-5.0) g/dL 05/24/20 05/24/20 05/24/20 Range/Units 05:15 08:28 08:28 APTT 32.9 H (22.0-30.0) sec Sodium (137-145) mmol/L Chloride (98-107) mmol/L BUN (9-20) mg/dL Creatinine (0.66-1.25) mg/dL Glucose (74-99) mg/dL POC Glucose (mg/dL) (75-99) mg/dL Calcium (8.4-10.2) mg/dL AST (17-59) U/L Alkaline Phosphatase (38-126) U/L Troponin I 0.295 H* 0.297 H* (0.000-0.034) ng/mL Total Protein (6.3-8.2) g/dL Albumin (3.5-5.0) g/dL Thrombosis Risk Factor Assmnt - Choose All That Apply Each Factor Represents 1 point: Age 41-60 years Thrombosis Risk Factor Assessment Total Risk Factor Score: 1 Thrombosis Risk Factor Assessment Level: Low Risk
--- NOTE | 2020-05-24 23:33 | P.DS ---
Providers Date of admission: 05/24/20 03:33 Expected date of discharge: 05/24/20 Attending physician: Ken Jefferson Consults: 05/24/20 03:28 Consult Physician Urgent Consulting Provider: Awais John Consult Reason/Comments: NSTEMI Do you want consulting provider notified?: Already Contacted 05/24/20 03:36 Consult Physician Routine Consulting Provider: Tanisha Ivan Consult Reason/Comments: Peritoneal dialysis patient Do you want consulting provider notified?: Yes Primary care physician: Emily Valentin [facility] Course: Chief Complaint: Chest pressure History of presenting complaint: This is a 54-year-old patient of . Chronic stable medical conditions include coronary artery disease with stent, diabetes, hypertension, hyperlip idemia, end-stage kidney dialysis on peritoneal dialysis for 4 years some left- sided weakness from prior stroke, MS, peripheral neuropathy, AICD pacemaker last coronary stent was about a year ago. Patient woke up with significant nausea and developed chest pressure that lasted for good 2 hours going across. Was dizzy lightheaded broke out into a sweat. No abdominal pain. No fever no chills. He said this felt like his previous cardiac event. Patient is pending a kidney and a heart transplant is on the list. Does not make much urine. No fever no chills. Patient is seen by cardiology. They felt the troponin rise was from kidney failure. THE patient to be discharged. No further chest pain. Okay per nephrology r to be discharged. 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 Consultation: Dr. TEDDY Rowe from cardiology Dr. Ivan from nephrology Physical examination: VITAL SIGNS: 97.4, 71, 22, 102/50, 95% on 4 L-upon presentation GENERAL: BMI 25.4, laying in bed, not in distress. EYES: Pupils equal. Conjunctiva normal. HEENT: External appearance of nose and ears normal, oral cavity grossly normal. NECK: JVD not raised; masses not palpable. HEART: First and second heart sounds are normal; minimal edema. LUNGS: Respiratory rate normal; decreased breath sounds. ABDOMEN: Soft, nontender, liver spleen not palpable, no masses palpable. PSYCH: Alert and oriented x3; mood and affect normal. INVESTIGATIONS, reviewed in the clinical context: White count 7.7 hemoglobin 15.2 platelets 270 potassium 4.2 bun 53 creatinine 8.50 Troponin 0.414, 0.295, 0.297 EKG tracing personally reviewed by me-normal sinus rhythm paced rhythm Chest x-ray film personally reviewed by me-cardiomegaly and some venous prominence Assessment: -Anterior chest wall pain. Probably muscular skeletal from vomiting. -Coronary artery disease with prior history of stent about a year ago -Diabetic mellitus type II -Hyperlipidemia -Essential hypertension -End-stage kidney disease on peritoneal dialysis. Patient is on list for kidney and heart transplant -Chronic multiple sclerosis -Diabetic peripheral neuropathy -AICD with pacemaker Disposition: Home Patient Condition at Discharge: Fair Plan - Discharge Summary Discharge Rx Participant: No New Discharge Prescriptions: New Midodrine [ProAmatine] 5 mg PO AC-BID #60 tab Continue Clopidogrel [Plavix] 75 mg PO DAILY Hydrocodone/Acetaminophen [[place] 5-325] 1 tab PO DAILY PRN PRN Reason: pain Aspirin EC [Ecotrin Low Dose] 81 mg PO DAILY carvediloL [Coreg] 3.125 mg PO BID Sevelamer Carbonate 2.4 gm PO PC-TID Furosemide [Lasix] 80 mg PO DAILY PRN PRN Reason: Edema Discharge Medication List Clopidogrel [Plavix] 75 mg PO DAILY 02/19/15 [History] Aspirin EC [Ecotrin Low Dose] 81 mg PO DAILY 01/04/18 [History] Hydrocodone/Acetaminophen [[place] 5-325] 1 tab PO DAILY PRN 01/04/18 [History] Furosemide [Lasix] 80 mg PO DAILY PRN 05/24/20 [History] Midodrine [ProAmatine] 5 mg PO AC-BID #60 tab 05/24/20 [Rx] Sevelamer Carbonate 2.4 gm PO PC-TID 05/24/20 [History] carvediloL [Coreg] 3.125 mg PO BID 05/24/20 [History] Follow up Appointment(s)/Referral(s): dr olga [Other] - 05/28/20 Emily Valentin DO [Primary Care Provider] - 1-2 days Jamil Ramos DO [STAFF PHYSICIAN] - 1 Week Discharge Disposition: HOME SELF-CARE
[2020-05-25] MEDS ORDERED: ASPIRIN 325 MG TAB PO SCH (09:00)
== END 2020-05-24 19:40 | disposition home or self-care (01) | DRG 313 ==
LOC: EC 01:52 → 3SCARD 03:33
PROVIDERS: ADMIT Hospitalist; ATTEND Hospitalist
DX: R07.89 Other chest pain (principal); N18.6 End stage renal disease; I13.2 Hypertensive heart and chronic kidney disease with heart failure and with stage 5 chronic kidney disease, or end stage renal disease; I50.22 Chronic systolic (congestive) heart failure; I69.354 Hemiplegia and hemiparesis following cerebral infarction affecting left non-dominant side; E11.22 Type 2 diabetes mellitus with diabetic chronic kidney disease; D63.1 Anemia in chronic kidney disease; Z99.2 Dependence on renal dialysis; R11.10 Vomiting, unspecified; E78.5 Hyperlipidemia, unspecified; G35 Multiple sclerosis; I25.10 Atherosclerotic heart disease of native coronary artery without angina pectoris; I25.2 Old myocardial infarction; I25.5 Ischemic cardiomyopathy; I27.20 Pulmonary hypertension, unspecified; I08.1 Rheumatic disorders of both mitral and tricuspid valves; I45.10 Unspecified right bundle-branch block; I95.89 Other hypotension; E83.9 Disorder of mineral metabolism, unspecified; R42 Dizziness and giddiness; Z79.02 Long term (current) use of antithrombotics/antiplatelets; Z79.82 Long term (current) use of aspirin; Z79.899 Other long term (current) drug therapy; R79.89 Other specified abnormal findings of blood chemistry; Z87.891 Personal history of nicotine dependence; Z91.19 Patient's noncompliance with other medical treatment and regimen; Z95.5 Presence of coronary angioplasty implant and graft; Z95.810 Presence of automatic (implantable) cardiac defibrillator; Z84.1 Family history of disorders of kidney and ureter; Z80.9 Family history of malignant neoplasm, unspecified
CPT/HCPCS: 36415; 71045; 80053; 82533; 83735; 83880; 84484; 85025; 85610; 85730; 93005; 96374; 96375; 99291